=== PATIENT | female | born 1955 | race Caucasian/White ===

== ENCOUNTER 2017-06-15 18:37 | Inpatient (IN) ==
[2017-06-15] MEDS ORDERED: ONDANSETRON 4 MG/2 ML VIAL IV ONE (18:53)
[2017-06-15] MEDS ORDERED: LACTATED RINGERS 1,000 ML IV ONE (18:53)
--- NOTE | 2017-06-15 18:55 | Emergency Department Note ---
SOB HPI - General Chief Complaint: Shortness of Breath/Dyspnea Stated Complaint: SOB, weakness Time Seen by Provider: 06/15/17 18:49 Source: patient Mode of arrival: EMS - History of Present Illness This patient comes from care home in [place] with cough fever shortness of breath nausea vomiting for last several days. Has a number of residents to have the flu. A lot of chronic back pain which is been exacerbated by the nausea vomiting and tenseness from coughing. Office productive of green phlegm. - Related Data Home Medications Medication Instructions Recorded Confirmed Amiodarone HCl [Pacerone] 400 mg PO DAILY 11/13/16 06/15/17 Atorvastatin [Lipitor] 40 mg PO HS 11/13/16 06/15/17 Fluticasone/Salmeterol [Advair 1 puff INH BID 11/13/16 06/15/17 250-50 Diskus] HYDROcodone/APAP 5/325MG [[place] 2 tab PO Q4HP PRN 11/13/16 06/15/17 5/325Mg] Lisinopril [Zestril] 10 mg PO DAILY 11/13/16 06/15/17 Loratadine [Claritin] 10 mg PO DAILY 11/13/16 06/15/17 Methocarbamol [Robaxin] 500 mg PO QIDP PRN 11/13/16 06/15/17 PARoxetine HCL [Paxil] 40 mg PO BID 11/13/16 06/15/17 Spironolactone [Aldactone] 25 mg PO DAILY 11/13/16 06/15/17 Theophylline Anhydrous [Ayden-24] 300 mg PO DAILY 11/13/16 06/15/17 metFORMIN [Glucophage] 500 mg PO BIDCC 11/13/16 06/15/17 sitaGLIPtin [Januvia] 100 mg PO DAILY 11/13/16 06/15/17 traZODone HCL [Trazodone HCl] 100 mg PO HS 11/13/16 06/15/17 Apixaban [Eliquis] 5 mg PO BID 05/13/17 06/15/17 Cholecalciferol (Vitamin D3) 400 unit PO DAILY 05/13/17 06/15/17 [Delta D3] Ipratropium [Atrovent] 2.5 ml NEB Q6HP PRN 05/13/17 06/15/17 Lidocaine 5% Oint 1 dose TOPICAL QIDP PRN 05/13/17 06/15/17 Metoprolol Succinate [Toprol Xl] 50 mg PO BID 05/13/17 06/15/17 Multivitamin [One Daily] 1 each PO DAILY 05/13/17 06/15/17 Nystatin 100,000 unit PO BID 05/13/17 06/15/17 Ondansetron [Zofran Odt] 8 mg PO Q8HP PRN 05/13/17 06/15/17 Pregabalin [Lyrica] 50 mg PO BID 05/13/17 06/15/17 Ubidecarenone [Co Q-10] 200 mg PO DAILY 05/13/17 06/15/17 Vitamin B Complex [Ultra B-100 1 each PO DAILY 05/13/17 06/15/17 Complex] fentaNYL [Fentanyl] 50 mcg TD Q72H 05/13/17 06/15/17 Allergies Allergy/AdvReac Type Severity Reaction Status Date / Time No Known Drug Allergies Allergy Verified 06/15/17 18:46 Review of Systems All systems ED: reviewed and negative except as stated. Past Medical History - Past Medical History Medical history: Reports: atrial fibrillation, CHF, COPD, DM, fibromyalgia, hyperlipidemia, hypertension - Social History smoking status: Current every day smoker Physical Exam Limitations: no limitations General appearance: alert Head: atraumatic Eye: Present: normal appearance ENT: normal exam Neck: Present: normal inspection Chest: Present: normal inspection Respiratory: Present: other (diminished breath sounds in the bases) Cardiovascular: Present: irregular rhythm, normal heart sounds Abdominal: Present: soft, tenderness. Absent: distention, guarding, rebound Abdominal tenderness: Present: diffuse, mild Neurological: Present: alert Psychiatric: Present: normal affect, normal mood Skin: Present: warm, dry, intact Course Vital Signs Temperature 100.3 F H 06/15/17 18:38 Pulse Rate 73 06/15/17 18:38 Respiratory Rate 20 06/15/17 18:38 Blood Pressure 95/77 06/15/17 18:38 Pulse Oximetry (%) 98 06/15/17 18:38 Temperature 100.3 F H 06/15/17 18:38 Pulse Rate 71 06/15/17 20:44 Respiratory Rate 16 06/15/17 20:44 Blood Pressure 106/53 06/15/17 20:31 Pulse Oximetry (%) 97 06/15/17 20:44 Shortness of Breath/Dyspnea - [facility] Narrative Medical decision making narrative: This patient's flu test was negative I believe she has a posterior infiltrate on her chest x-ray. White count was elevated lactic acid slightly elevated she is febrile. We did blood cultures and started Levaquin. She will be admitted to the hospital by Dr. Del Castillo - Lab Data Lab results reviewed: Yes I reviewed the patient's lab results. Result diagrams: 06/15/17 19:12 06/15/17 19:12 Lab Results 06/15/17 06/15/17 06/15/17 Range/Units 19:12 19:12 19:12 WBC 13.1 H (4.5-11.0) K/mcL RBC 4.27 (4.00-5.20) M/mcL Hgb 12.1 (12.0-15.0) g/dL Hct 37.4 (36.0-48.0) % MCV 87.6 (80.0-100.0) fL MCH 28.4 (26.0-34.0) pg MCHC 32.5 (31.0-36.0) g/dL RDW 15.5 H (11.5-14.5) % Plt Count 285 (140-440) K/mcL MPV 8.8 (7.4-10.4) fL Gran % 69.3 (38.0-78.0) % Lymph % (Auto) 20.7 (15.5-49.0) % [place] % (Auto) 7.1 (1.0-12.0) % Eos % (Auto) 2.7 (0.0-7.0) % Baso % (Auto) 0.2 (0.0-2.0) % Gran # 9.0 H (1.8-8.0) K/mcL Lymph # (Auto) 2.7 (1.5-4.8) K/mcL [place] # (Auto) 0.9 (0.1-0.9) K/mcL Eos # (Auto) 0.4 (0.0-0.7) K/mcL Baso # (Auto) 0 (0.0-0.3) K/mcL VBG Lactic Acid 2.9 H (0.5-2.2) mmol/L Sodium 140 (133-145) mmol/L Potassium 4.4 (3.3-5.1) mmol/L Chloride 97 (96-108) mmol/L Carbon Dioxide 27 (22-30) mmol/L Anion Gap 16.0 (8-16) BUN 12 (8-23) mg/dl Creatinine 0.8 (0.6-1.1) mg/dl GFR Calculation 78 Glucose 214 H (70-105) mg/dL Calcium 9.5 (8.6-10.4) mg/dl Total Bilirubin 0.3 (0.0-1.0) mg/dL AST 100 H (0-37) U/l ALT 77 H (0-40) U/l Alkaline Phosphatase 94 (39-117) U/L Total Protein 7.5 (5.9-8.4) gm/dL Albumin 3.5 (3.2-5.2) gm/dL Globulin 4.0 H (2.2-3.7) gm/dL Albumin/Globulin Ratio 0.9 L (1.0-2.3) Lipase 24 (7-60) U/L Urine Color Urine Appearance Urine pH (5.0-9.0) Ur Specific [place] (1.000-1.035) Urine Protein (NEG) mg/dL Urine Glucose (UA) (NEG) mg/dL Urine Ketones (NEG) mg/dL Urine Occult Blood (<0.03) mg/dL Urine Nitrate (NEG) Urine Bilirubin (NEG) mg/dL Urine Urobilinogen (NEG) mg/dL Ur Leukocyte Esterase (NEG) /uL Urine RBC (0-1) /hpf Urine WBC (0-4) /hpf Ur Squamous Epith Cells (0-4) /hpf Calcium Oxalate Crystal (0) /hpf Urine Bacteria (0) /hpf Ur Culture Indicated? 06/15/17 Range/Units 20:00 WBC (4.5-11.0) K/mcL RBC (4.00-5.20) M/mcL Hgb (12.0-15.0) g/dL Hct (36.0-48.0) % MCV (80.0-100.0) fL MCH (26.0-34.0) pg MCHC (31.0-36.0) g/dL RDW (11.5-14.5) % Plt Count (140-440) K/mcL MPV (7.4-10.4) fL Gran % (38.0-78.0) % Lymph % (Auto) (15.5-49.0) % [place] % (Auto) (1.0-12.0) % Eos % (Auto) (0.0-7.0) % Baso % (Auto) (0.0-2.0) % Gran # (1.8-8.0) K/mcL Lymph # (Auto) (1.5-4.8) K/mcL [place] # (Auto) (0.1-0.9) K/mcL Eos # (Auto) (0.0-0.7) K/mcL Baso # (Auto) (0.0-0.3) K/mcL VBG Lactic Acid (0.5-2.2) mmol/L Sodium (133-145) mmol/L Potassium (3.3-5.1) mmol/L Chloride (96-108) mmol/L Carbon Dioxide (22-30) mmol/L Anion Gap (8-16) BUN (8-23) mg/dl Creatinine (0.6-1.1) mg/dl GFR Calculation Glucose (70-105) mg/dL Calcium (8.6-10.4) mg/dl Total Bilirubin (0.0-1.0) mg/dL AST (0-37) U/l ALT (0-40) U/l Alkaline Phosphatase (39-117) U/L Total Protein (5.9-8.4) gm/dL Albumin (3.2-5.2) gm/dL Globulin (2.2-3.7) gm/dL Albumin/Globulin Ratio (1.0-2.3) Lipase (7-60) U/L Urine Color Loren Urine Appearance Cloudy Urine pH 5.0 (5.0-9.0) Ur Specific [place] 1.025 (1.000-1.035) Urine Protein 100 A (NEG) mg/dL Urine Glucose (UA) 50 A (NEG) mg/dL Urine Ketones Neg (NEG) mg/dL Urine Occult Blood >=1.0 A (<0.03) mg/dL Urine Nitrate Neg (NEG) Urine Bilirubin Neg (NEG) mg/dL Urine Urobilinogen 2.0 A (NEG) mg/dL Ur Leukocyte Esterase Neg (NEG) /uL Urine RBC > 182 H (0-1) /hpf Urine WBC 7 H (0-4) /hpf Ur Squamous Epith Cells 1 (0-4) /hpf Calcium Oxalate Crystal Mod A (0) /hpf Urine Bacteria Few A (0) /hpf Ur Culture Indicated? Yes - Radiology Data Radiology results reviewed: Yes I reviewed the patient's radiology results. Disposition Pt seen by [facility] only: No Clinical Impression: Community acquired pneumonia Disposition: Xfer As Inpt ([facility]) Condition: Good Referrals: Katie Camp ARNP [Primary Care Provider] - Time of Disposition: 21:20
[2017-06-15] MEDS: HYDROmorphone 2 MG/ML SYRINGE IV PRN ×3 (19:17→21:48)
[2017-06-15] MEDS ORDERED: LEVOFLOXACIN 750 MG/150 ML BAG IV ONE (19:52)
--- NOTE | 2017-06-15 19:53 | XRay Report ---
CLINICAL INFORMATION: Cough and shortness of breath COMPARISON: None. FINDINGS: Moderate cardiomegaly is appreciated. Mediastinum is unremarkable. Pulmonary vessels are mildly distended. No definite edema. Minor bibasilar atelectasis noted IMPRESSION: Mild CHF or volume overload Interpreted and Authenticated by: Trace Terrell 06/15/17
[2017-06-15 20:26] LABS: Basophils # (Auto) 0 K/mcL (0.0-0.3); Basophils % (Auto) 0.2 % (0.0-2.0); Eosinophils # (Auto) 0.4 K/mcL (0.0-0.7); Eosinophils % (Auto) 2.7 % (0.0-7.0); Granulocytes % (Auto) 69.3 % (38.0-78.0); Lymphocytes # (Auto) 2.7 K/mcL (1.5-4.8); Lymphocytes % (Auto) 20.7 % (15.5-49.0); Mean Cell Volume 87.6 fL (80.0-100.0); Mean Corpuscular HGB Conc 32.5 g/dL (31.0-36.0); Mean Corpuscular Hemoglobin 28.4 pg (26.0-34.0); Monocytes # (Auto) 0.9 K/mcL (0.1-0.9); Monocytes % (Auto) 7.1 % (1.0-12.0); Platelet Count 285 K/mcL (140-440); RBC 4.27 M/mcL (4.00-5.20); Red Cell Distribution Width 15.5 % (11.5-14.5)
[2017-06-15 20:40] LABS: ALT/SGPT 77 U/l (0-40); Albumin 3.5 gm/dL (3.2-5.2); Albumin/Globulin Ratio 0.9 (1.0-2.3); Alkaline Phosphatase 94 U/L (39-117); Blood Urea Nitrogen 12 mg/dl (8-23); Lipase 24 U/L (7-60)
[2017-06-15 20:41] LABS: Appearance,Urine CLOUDY; Bacteria,Urine FEW /hpf (0); Bilirubin,Urine NEG (NEG); Calcium Oxalate Crystals,Urine MOD /hpf (0); Color,Urine AMBER; Glucose,Urine (UA) 50 mg/dL (NEG); Leukocyte Esterase,Urine NEG /uL (NEG); Nitrate,Urine NEG (NEG); Protein,Urine 100 mg/dL (NEG); Specific Gravity,Urine 1.025 (1.000-1.035); Urine Blood >=1.0 mg/dL (<0.03); Urine RBC > 182 /hpf (0-1); Urine Squamous Epithelial Cell 1 /hpf (0-4); Urine WBC 7 /hpf (0-4)
[2017-06-15 22:08] LABS: proBNP 288.1 pg/ml (0-125)
[2017-06-15] MEDS ORDERED: ACETAMINOPHEN 325 MG TABLET PO PRN (22:16)
[2017-06-15] MEDS ORDERED: cefTRIAXone 2 GM in DEXTROSE 5% IN WATER 50 ML IV SCH (22:16)
[2017-06-15] MEDS ORDERED: NALOXONE HCL 0.4 MG/ML VIAL IV PRN (22:16)
[2017-06-15] MEDS ORDERED: DEXTROSE 50% 50 ML VIAL IV PRN (22:23)
[2017-06-15] MEDS ORDERED: DEXTROSE 31 GM ORAL.SUSP PO PRN (22:23)
[2017-06-15] MEDS: INSULIN LISPRO 1 UNIT/0.01 ML UNIT SQ SCH (22:30)
[2017-06-15] MEDS ORDERED: predniSONE 20 MG TABLET PO ONE (22:46)
[2017-06-15] MEDS ORDERED: ACETAMINOPHEN 1,000 MG/100 ML BOTTLE IV PRN (22:48)
[2017-06-15] MEDS ORDERED: cefTRIAXone 1 GM VIAL ONE ×2 (22:58→22:59)
[2017-06-15] MEDS ORDERED: traZODone HCL 50 MG TABLET ONE (22:58)
--- NOTE | 2017-06-15 22:59 | Internal Med History&Physical ---
Medical - H&P: HPI Patient information: Note initiated : 06/15/17 at 10:54 pm Service Date, if different from initiated Date: [] Patient: Sammie Mazariegos a 61 y/o F admitted on 06/15/17 for SOB, weakness. Chief Complaint: [] History of present illness: Ms. Mazariegos is a 61 year old Female who presents to the hospital today from [facility] for shortness of breath, cough and chest pains. The patient notes that she was at her baseline status approximately 5 days ago, she then started to develop cough, shortness of breath and chest pain, cough and shortness of breath has been progressively getting worse, the patient cough is associated with yellowish green sputum, she notes she has chest tightness as well as chest pain with her coughing. Her shortness of breath has been progressively getting worse and therefore she presented to the hospital for further management. The patient notes that there are a few [place] residents with the flu In the ER the patient had a low grade temperature, her bp was low normal, she had leucocytosis, hematuria with few wbc, CXR interpreted as mild chf/ fluid overload, the patient was admitted to the hospital for further management. The patient note she has childhood asthma, taking theophyllline since then? she has h/o congestive heart failure (diastolic as for snf notes), copd, afib on anticoagulation. she has been a SNF resident since last year, as she did not have any place to go. She notes she wishes to be comfortable, and does not wish any aggressive interventions, she declined cpr, as well as intubation, said no to bipap. The patient notes she had soem dizziness and headaches, no issues with swallowing, no hearing or vision issues, chr abdominal pain and some nausea, no constipation or diarrhea, no urinary complaints. no edema feet, chr joint and back pain. has depression. All systems: reviewed and no additional remarkable complaints except as stated ( as per HPI) Medical - H&P: PMH Medical history: COPD on 2 L home oxygen CHF diastoilic afib on eliquis allergic rhinitis back pain fibromyalgia htn type 2 MD palma depression. morbid obesity Surgical history: cholecystectomy tonisllectomy Pertinent family history: mothers side has cancer father side has cardiac issues. Social history: lives in [facility] smoker denies recreational drugs and etoh. Medical - H&P: Meds Home Medications Medication Instructions Recorded Confirmed Type Amiodarone HCl [Pacerone] 400 mg PO DAILY 11/13/16 06/15/17 History Atorvastatin [Lipitor] 40 mg PO HS 11/13/16 06/15/17 History Fluticasone/Salmeterol [Advair 1 puff INH BID 11/13/16 06/15/17 History 250-50 Diskus] HYDROcodone/APAP 5/325MG [[place] 2 tab PO Q4HP PRN 11/13/16 06/15/17 History 5/325Mg] Lisinopril [Zestril] 10 mg PO DAILY 11/13/16 06/15/17 History Loratadine [Claritin] 10 mg PO DAILY 11/13/16 06/15/17 History Methocarbamol [Robaxin] 500 mg PO QIDP PRN 11/13/16 06/15/17 History PARoxetine HCL [Paxil] 40 mg PO BID 11/13/16 06/15/17 History Spironolactone [Aldactone] 25 mg PO DAILY 11/13/16 06/15/17 History Theophylline Anhydrous [Ayden-24] 300 mg PO DAILY 11/13/16 06/15/17 History metFORMIN [Glucophage] 500 mg PO BIDCC 11/13/16 06/15/17 History sitaGLIPtin [Januvia] 100 mg PO DAILY 11/13/16 06/15/17 History traZODone HCL [Trazodone HCl] 100 mg PO HS 11/13/16 06/15/17 History Apixaban [Eliquis] 5 mg PO BID 05/13/17 06/15/17 History Cholecalciferol (Vitamin D3) 400 unit PO DAILY 05/13/17 06/15/17 History [Delta D3] Ipratropium [Atrovent] 2.5 ml NEB Q6HP PRN 05/13/17 06/15/17 History Lidocaine 5% Oint 1 dose TOPICAL QIDP PRN 05/13/17 06/15/17 History Metoprolol Succinate [Toprol Xl] 50 mg PO BID 05/13/17 06/15/17 History Multivitamin [One Daily] 1 each PO DAILY 05/13/17 06/15/17 History Nystatin 100,000 unit PO BID 05/13/17 06/15/17 History Ondansetron [Zofran Odt] 8 mg PO Q8HP PRN 05/13/17 06/15/17 History Pregabalin [Lyrica] 50 mg PO BID 05/13/17 06/15/17 History Ubidecarenone [Co Q-10] 200 mg PO DAILY 05/13/17 06/15/17 History Vitamin B Complex [Ultra B-100 1 each PO DAILY 05/13/17 06/15/17 History Complex] fentaNYL [Fentanyl] 50 mcg TD Q72H 05/13/17 06/15/17 History Allergies Allergy/AdvReac Type Severity Reaction Status Date / Time No Known Drug Allergies Allergy Verified 06/15/17 18:46 Medical - H&P: Exam - Constitutional Vitals: Temp Pulse Resp BP Pulse Ox 98.1 F 71 60 H 122/63 94 06/15/17 22:16 06/15/17 22:16 06/15/17 22:16 06/15/17 22:16 06/15/17 22:16 Exam: GENERAL: The patient is a well-developed, well-nourished in no apparent distress. Is alert and oriented x3. short, with central obesity. VITAL SIGNS: Reviewed and as noted elsewhere. HEENT: Head is normocephalic and atraumatic. Extraocular muscles are intact. Pupils are equal, round, and reactive to light. Nares appeared normal. Mouth appears any without lesions. Mucous membranes are dry NECK: Normal to inspection, Supple, short neck LUNGS: Air entry equal on both sides, but significantly dimished breath sounds, no wheezing, crackles or rhonchi noted. No accessory muscles of respiration HEART: Regular rate and rhythm normal, S1 and S2 heard, no Gallop, S3 or Rub Noted, No Gross murmur heard. ABDOMEN: Soft, left lateral , right lateral areas mildly tender, her PCP is working it up, abdomen is nondistended. Positive bowel sounds. No hepatosplenomegaly was noted. Large pannus. EXTREMITIES: No cyanosis, clubbing, rash, lesions or edema. NEUROLOGIC: Cranial nerves II through XII are grossly intact. Motor and Sensory System Grossly Intact PSYCHIATRIC: Normal affect, Normal Mood. Appropriate Behavior. SKIN: No ulceration or wounds noted, No jaundice, fungal rash under the breast Medical - H&P: Reslt - Labs CBC & Chem 7: 06/15/17 19:12 06/15/17 19:12 Labs: Short CBC 06/15/17 Range/Units 19:12 WBC 13.1 H (4.5-11.0) K/mcL Hgb 12.1 (12.0-15.0) g/dL Hct 37.4 (36.0-48.0) % Plt Count 285 (140-440) K/mcL BMP 06/15/17 19:12 Sodium 140 Potassium 4.4 Chloride 97 Carbon Dioxide 27 BUN 12 Creatinine 0.8 Glucose 214 H Calcium 9.5 Liver Function 06/15/17 Range/Units 19:12 Total Bilirubin 0.3 (0.0-1.0) mg/dL AST 100 H (0-37) U/l ALT 77 H (0-40) U/l Alkaline Phosphatase 94 (39-117) U/L Albumin 3.5 (3.2-5.2) gm/dL Urine 06/15/17 Range/Units 20:00 Urine Color Loren Urine Appearance Cloudy Urine pH 5.0 (5.0-9.0) Ur Specific [place] 1.025 (1.000-1.035) Urine Protein 100 A (NEG) mg/dL Urine Glucose (UA) 50 A (NEG) mg/dL - EKG Data -: EKG Reviewed by Myself EKG shows normal: sinus rhythm (non specific Intraventricular conduction delay, no acyute ischemic changes. ) Medical - H&P: A/P - Narrative A/P Narrative: A/P Acute COPD exacerbation: Patient has kamran poor air entry and URI symptoms with cough and shortness of breath, will treat as copd exacerbation, possible bronchitits causing elevated WBC, X ray chest is reported negative. possibly sepsis and lactic acidosis. Treat with PO prednisone 60 mg, DUonebs q4hrs, and Levofloxacin. IV fluids, trend lactate. Give tamiflu x 5 days. (noted flu test is neg, but high disease prevalence) UTI: abnl UA noted, cultures awaited, levofloxa should cover Chr resp failure: Uses 2 L oxygen at baseline ,on same does now continue same CHF Diastolic: monitor bp, Her Chest x ray is interpreted as mild chf, bnp is mildly elevated, however patient clinically is dry, dry mucosa, no edema, hold diuretics (aldactone) HTN: Hold home bp meds, metoprolol and lisinopril for now, given normal bp, and likely need for IV fluids in light of infection and lactic acidosis. Hypothyroidism: TSH elevated > 10, start on low dose of levothyroxine at 12.5mcg and monitor. Atrial fibrillation: EKG appeared sinus, on amiodarone and metoprolol, on eliquis for anticoagulation, continue same. Back pain/ Fibromyalgia: Chr issues, treat with home pain meds, she is already on fentanyl patch and hydrocodone orally, gabapentin. Avoid IV narcoticsas much as possible unless pt wishes for hospice/ palliative care. DM: hold metformin, continue with januvia and sliding scale insulin. DVT on eliquis GI prophylaxis, famotid DNR code status,
[2017-06-15] MEDS ORDERED: 0.9 % SODIUM CHLORIDE 1,000 ML IV SCH (23:00)
[2017-06-15] MEDS: fentaNYL 50 MCG PATCH TOPICAL SCH (23:22)
[2017-06-15] MEDS: OSELTAMIVIR PHOSPHATE 75 MG CAPSULE PO SCH (23:22)
[2017-06-15] MEDS: METHOCARBAMOL 500 MG TABLET PO PRN (23:24)
[2017-06-15] MEDS: ATORVASTATIN 20 MG TABLET PO SCH (23:26)
[2017-06-15] MEDS: guaiFENesin/CODEINE 10 ML UDC PO PRN (23:30)
[2017-06-15] MEDS: APIXABAN 5 MG TABLET PO SCH (23:30)
[2017-06-15] MEDS: HYDROcodone/APAP 5/325MG TABLET PO PRN (23:39)
[2017-06-15] MEDS: IPRATROPIUM/ALBUTEROL 3 ML AMPUL.NEB NEB SCH (23:52)
[2017-06-16] MEDS ORDERED: IPRATROPIUM/ALBUTEROL 3 ML AMPUL.NEB NEB SCH (01:00)
[2017-06-16] MEDS: HYDROcodone/APAP 5/325MG TABLET PO PRN ×5 (03:49→20:39)
[2017-06-16] MEDS: guaiFENesin/CODEINE 10 ML UDC PO PRN ×5 (03:50→21:59)
[2017-06-16] MEDS: IPRATROPIUM/ALBUTEROL 3 ML AMPUL.NEB NEB SCH ×7 (04:00→23:04)
[2017-06-16 05:23] LABS: Basophils # (Auto) 0 K/mcL (0.0-0.3); Basophils % (Auto) 0.2 % (0.0-2.0); Eosinophils # (Auto) 0.1 K/mcL (0.0-0.7); Granulocytes % (Auto) 84.3 % (38.0-78.0); Lymphocytes # (Auto) 1.4 K/mcL (1.5-4.8); Lymphocytes % (Auto) 12.1 % (15.5-49.0); Mean Cell Volume 88.8 fL (80.0-100.0); Mean Corpuscular HGB Conc 32.1 g/dL (31.0-36.0); Mean Corpuscular Hemoglobin 28.5 pg (26.0-34.0); Monocytes # (Auto) 0.3 K/mcL (0.1-0.9); Monocytes % (Auto) 2.4 % (1.0-12.0); Platelet Count 245 K/mcL (140-440); RBC 4.13 M/mcL (4.00-5.20); Red Cell Distribution Width 15.1 % (11.5-14.5)
[2017-06-16 06:04] LABS: ALT/SGPT 67 U/l (0-40); Albumin 3.4 gm/dL (3.2-5.2); Albumin/Globulin Ratio 0.9 (1.0-2.3); Alkaline Phosphatase 82 U/L (39-117); Bilirubin,Direct < 0.2 mg/dL (0.0-0.3); Blood Urea Nitrogen 11 mg/dl (8-23); Gamma Glutamyl Transpeptidase 117 U/L (5-36); Magnesium 1.4 mg/dL (1.6-2.5); Uric Acid 2.9 mg/dL (2.5-8.0)
[2017-06-16] MEDS: LEVOTHYROXINE 25 MCG TABLET PO SCH (07:53)
[2017-06-16] MEDS: AMIODARONE HCL 200 MG TABLET PO SCH (08:09)
[2017-06-16] MEDS: INSULIN LISPRO 1 UNIT/0.01 ML UNIT SQ SCH ×5 (08:09→20:55)
[2017-06-16] MEDS: predniSONE 20 MG TABLET PO SCH (08:09)
[2017-06-16] MEDS ORDERED: LEVOFLOXACIN 750 MG/150 ML BAG IV SCH (09:00)
[2017-06-16] MEDS ORDERED: PREGABALIN 50 MG CAPSULE PO SCH (09:00)
[2017-06-16] MEDS ORDERED: PAROXETINE HCL 40 MG PO SCH (09:00)
[2017-06-16] MEDS ORDERED: OSELTAMIVIR PHOSPHATE 75 MG CAPSULE PO SCH (09:00)
[2017-06-16] MEDS ORDERED: THEOPHYLLINE ANHYDROUS 300 MG TAB.ER.12H PO SCH (09:00)
[2017-06-16] MEDS ORDERED: MAGNESIUM SULFATE 32.48 MEQ in DEXTROSE 5% IN WATER 100 ML IV ONE (09:00)
[2017-06-16] MEDS: FLUTICASONE/SALMETEROL 250/50 INHALER #14 INH SCH ×2 (09:10→20:58)
[2017-06-16] MEDS: VITAMIN D3 400 UNIT TABLET PO SCH (09:11)
[2017-06-16] MEDS: PREGABALIN 25 MG CAPSULE PO SCH ×2 (09:19→20:40)
[2017-06-16] MEDS: sitaGLIPtin 100 MG TABLET PO SCH (09:19)
[2017-06-16] MEDS: MAGNESIUM OXIDE 400 MG TABLET PO SCH ×2 (09:19→20:41)
[2017-06-16] MEDS: MULTIVIT,THER IRON,CA,FA & MIN 1 TABLET PO SCH (09:19)
[2017-06-16] MEDS: OSELTAMIVIR PHOSPHATE 75 MG CAPSULE PO SCH ×2 (09:20→20:41)
[2017-06-16] MEDS: APIXABAN 5 MG TABLET PO SCH ×2 (09:20→20:41)
[2017-06-16] MEDS: NYSTATIN CRM 1 DOSE TUBE TOPICAL SCH ×3 (09:20→20:47)
[2017-06-16] MEDS: PARoxetine 20 MG TABLET PO SCH (09:23)
[2017-06-16] MEDS ORDERED: BENZONATATE 100 MG CAPSULE PO PRN (10:15)
[2017-06-16] MEDS: fentaNYL 50 MCG PATCH TOPICAL SCH (10:55)
[2017-06-16] MEDS: METHOCARBAMOL 500 MG TABLET PO PRN ×2 (10:56→18:37)
[2017-06-16] MEDS: ONDANSETRON 4 MG/2 ML VIAL IV PRN ×2 (10:56→18:37)
[2017-06-16] MEDS: THEOPHYLLINE ANHYDROUS 300 MG TAB.ER.12H PO SCH ×2 (11:10→12:41)
--- NOTE | 2017-06-16 12:18 | Internal Med Progress Note ---
Medical - PN: Subj Patient information: Note initiated : 06/16/17 at 12:15 pm Service Date, if different from initiated Date: [] Patient: Sammie Mazariegos a 61 y/o F admitted on 06/15/17 for SOB, Weakness/ COPD Exacerbation. Chief Complaint: [] Interval history: Ms. Mazariegos is a 61 year old Female who presents to the hospital today from [facility] for shortness of breath, cough and chest pains. The patient notes that she was at her baseline status approximately 5 days ago, she then started to develop cough, shortness of breath and chest pain, cough and shortness of breath has been progressively getting worse, the patient cough is associated with yellowish green sputum, she notes she has chest tightness as well as chest pain with her coughing. Her shortness of breath has been progressively getting worse and therefore she presented to the hospital for further management. The patient notes that there are a few [place] residents with the flu In the ER the patient had a low grade temperature, her bp was low normal, she had leucocytosis, hematuria with few wbc, CXR interpreted as mild chf/ fluid overload, the patient was admitted to the hospital for further management. The patient note she has childhood asthma, taking theophyllline since then? she has h/o congestive heart failure (diastolic as for snf notes), copd, afib on anticoagulation. she has been a SNF resident since last year, as she did not have any place to go. She notes she wishes to be comfortable, and does not wish any aggressive interventions, she declined cpr, as well as intubation, said no to bipap. The patient notes she had soem dizziness and headaches, no issues with swallowing, no hearing or vision issues, chr abdominal pain and some nausea, no constipation or diarrhea, no urinary complaints. no edema feet, chr joint and back pain. has depression. Jun 16 patient seen examined this AM doing well, was sitting comforably in bed, has no acute concerns, but does have some cough , tesselon perles to be added The patients urine is growing gram neg bacillus blood cx is neg she remains on levofloxax for bronchitis and UTI, descalate therapy as per sensitivities or adjust medications as needed. Patients pain control is reasonable, leucocytosis is improving. Glucose level his high, likely8 due to steroids. Pertinent ROS: Denies headache, dizziness Denies chest pain, palpitations present cough and shortness of breath Denies abdominal pain, nausea or vomiting. - Constitutional Vitals: Vital Signs Temp Pulse Resp BP Pulse Ox 97.9 F 90 20 129/77 94 06/16/17 08:00 06/16/17 08:00 06/16/17 08:00 06/16/17 08:00 06/16/17 08:00 Period Temp Pulse Resp BP Sys/Parra Pulse Ox Last 24 Hr 97.1 F-100.3 F 66-90 14-26 95-129/50-77 94-98 Intake and Output 06/15/17 06/16/17 06/16/17 21:59 05:59 13:59 Intake Total 1150 / 1150 1500 / 1500 100 / 100 Output Total 101 / 101 Balance 1150 / 1150 1500 / 1500 -1 / -1 Weight 235 lb 235 lb Intake & Output: Intake & Output 06/15/17 06/16/17 06/16/17 21:59 05:59 13:59 Intake Total 1150 / 1150 1500 / 1500 100 / 100 Output Total 101 / 101 Balance 1150 / 1150 1500 / 1500 -1 / -1 Weight 235 lb 235 lb Intake: IV 1150 / 1150 1000 / 1000 100 / 100 Sodium Chloride 0.9% 1,000 ml @ 1000 / 1000 250 mls/hr IV .Q4H PATRICK Rx#: [id number] Lactated Ringers 1,000 ml @ 1000 / 1000 Wide Open IV BOLUS ONE Rx#: [id number] Oral 500 / 500 Output: Void Amount 100 / 100 # of times incontinent of urine Other: Meal Sandwhich Percent of Meal Consumed 100% Feeding Ability Independent # Voids 1 1 Exam: Constitutional; Afebrile, cooperative, alert, not in distress. Eyes- No icterus, , No periorbital swelling Ears- Ext ear normal, hearing normal to conversation. Neck- Midline trachea, supple Respiratory system: Air Entry equal on both sides but significantly diminished breath sounds, No crackles or wheezing, no rhonchi. CVS- Rate rhythm regular, S1,S2 heard, no gallop, no rub. Abdomen- Soft nontender abdomen, no organomegaly, no tenderness, no guarding or rigidity, BUSINESS MANAGER- AOOx3, moving all extremities, no gross focal deficit noted. Medical - PN: Obj Da - Labs CBC & Chem 7: 06/16/17 03:33 06/16/17 03:33 Labs: Abnormal Lab Results 06/16/17 06/16/17 06/15/17 03:33 03:33 20:00 WBC 11.5 H Hgb 11.8 L RDW 15.1 H Gran % 84.3 H Lymph % (Auto) 12.1 L Gran # 9.7 H Lymph # (Auto) 1.4 L VBG Lactic Acid Glucose 221 H Magnesium 1.4 L GGT 117 H AST 82 H ALT 67 H NT-Pro-B Natriuret Pep Globulin Albumin/Globulin Ratio 0.9 L TSH Urine Protein 100 A Urine Glucose (UA) 50 A Urine Occult Blood >=1.0 A Urine Urobilinogen 2.0 A Urine RBC > 182 H Urine WBC 7 H Calcium Oxalate Crystal Mod A Urine Bacteria Few A 06/15/17 06/15/17 06/15/17 19:12 19:12 19:12 WBC Hgb RDW Gran % Lymph % (Auto) Gran # Lymph # (Auto) VBG Lactic Acid 2.9 H Glucose 214 H Magnesium GGT AST 100 H ALT 77 H NT-Pro-B Natriuret Pep 288.1 H Globulin 4.0 H Albumin/Globulin Ratio 0.9 L TSH 11.07 H Urine Protein Urine Glucose (UA) Urine Occult Blood Urine Urobilinogen Urine RBC Urine WBC Calcium Oxalate Crystal Urine Bacteria 06/15/17 19:12 WBC 13.1 H Hgb RDW 15.5 H Gran % Lymph % (Auto) Gran # 9.0 H Lymph # (Auto) VBG Lactic Acid Glucose Magnesium GGT AST ALT NT-Pro-B Natriuret Pep Globulin Albumin/Globulin Ratio TSH Urine Protein Urine Glucose (UA) Urine Occult Blood Urine Urobilinogen Urine RBC Urine WBC Calcium Oxalate Crystal Urine Bacteria Meds: Medications Hydrocodone Bitart/Acetaminophen ([place] 5/325mg) 2 tab PO Q4HP PRN PRN Reason: Pain Last Admin: 06/16/17 12:10 Dose: 2 tab Albuterol/Ipratropium (Duoneb) 3 ml NEB Q4HRT [facility] Last Admin: 06/16/17 07:10 Dose: 3 ml [facility]ar[facility] ([facility]) [facility] Last Admin: 06/16/17 08:09 Dose: 400 mg Atorvastatin Calcium (Lipitor) 20 mg PO HS [facility] Last Admin: 06/15/17 23:26 Dose: 20 mg Benzonatate (Tessalon) 100 mg PO TIDP PRN PRN Reason: Cough Dextrose (Dextrose 50%) 0 ml IV UD PRN PRN Reason: Hypoglycemia Diagnostic Test (Pha) (Accu-Chek) 1 each FS ACHS [facility] Last Admin: 06/16/17 11:41 Dose: 1 each Fentanyl (Duragesic) 50 mcg TOPICAL Q72H [facility] Last Admin: 06/16/17 10:55 Dose: 50 mcg Glucose (Insta-Glucose) 15 gm PO PRN PRN PRN Reason: Hypoglycemia Guaifenesin/Codeine Phosphate (Robitussin Ac) 10 ml PO Q4HP PRN PRN Reason: Cough Last Admin: 06/16/17 12:09 Dose: 10 ml Levofloxacin (Levaquin) 750 mg in 150 mls @ 100 mls/hr IV Q24H [facility] Last Infusion: 06/16/17 10:20 Dose: 0 mls/hr Acetaminophen (Ofirmev) 1,000 mg in 100 mls @ 200 mls/hr IV Q6HP PRN PRN Reason: PAIN/FEVER > 101 Insulin Human Lispro (Humalog) 0 unit SQ [facility] PRN Reason: Protocol Last Admin: 06/16/17 11:41 Dose: 8 unit Iron Carb/Multivit/[place]/Folic Acid (Multivitamin W/Minerals) 1 tab PO DAILY [facility] Last Admin: 06/16/17 09:19 Dose: 1 tab Levothyroxine Sodium (Synthroid) 12.5 mcg PO QAMAC [facility] Last Admin: 06/16/17 07:53 Dose: 12.5 mcg Magnesium Oxide (Magnesium Oxide) 400 mg PO BID [facility] Last Admin: 06/16/17 09:19 Dose: 400 mg Methocarbamol (Robaxin) 500 mg PO QIDP PRN PRN Reason: Pain Last Admin: 06/16/17 10:56 Dose: 500 mg Naloxone HCl (Narcan) 0.1 mg IV Q2MIN PRN PRN Reason: Opiate Reversal Nystatin (Nystatin Crm) 1 dose TOPICAL TID [facility] Last Admin: 06/16/17 09:20 Dose: 1 dose Ondansetron HCl (Zofran) 4 mg IV Q4HP PRN PRN Reason: Nausea And Vomiting Last Admin: 06/16/17 10:56 Dose: 4 mg Oseltamivir Phosphate (Tamiflu) 75 mg PO BID [facility] Stop: 06/20/17 22:23 Last Admin: 06/16/17 09:20 Dose: 75 mg Paroxetine HCl (Paxil) 40 mg PO DAILY [facility] Last Admin: 06/16/17 09:23 Dose: 40 mg Prednisone (Prednisone) 60 mg PO [facility] Stop: 06/21/17 07:59 Last Admin: 06/16/17 08:09 Dose: 60 mg Pregabalin (Lyrica) 50 mg PO BID [facility] Last Admin: 06/16/17 09:19 Dose: 50 mg Fluticasone/Salmeterol (Advair 250-50 Diskus) 1 puff INH BID [facility] Last Admin: 06/16/17 09:10 Dose: Not Given Sitagliptin Phosphate (Januvia) 100 mg PO DAILY [facility] Last Admin: 06/16/17 09:19 Dose: 100 mg Theophylline (Theophylline Anhydrous) 300 mg PO DAILY [facility] Last Admin: 06/16/17 11:10 Dose: Not Given Trazodone HCl (Desyrel) 100 mg PO [facility] Vitamin D (Vitamin D3) 400 unit PO DAILY [facility] Last Admin: 06/16/17 09:11 Dose: Not Given Medical - PN: A/P - Time Spent With Patient Total time spent is greater than 50% in coordination of care (as documented) at patient's floor/unit and/or counseling patient: - Narrative A/P Narrative: A/P Acute COPD exacerbation: Patient has kamran poor air entry and URI symptoms with cough and shortness of breath, will treat as copd exacerbation, X ray chest is reported negative. Treat with PO prednisone 60 mg, DUonebs q4hrs, and Levofloxacin. Give tamiflu x 5 days. (noted flu test is neg, but high disease prevalence) lactic acidosis resolved: No more IVF, patient toleratinng po diet well, UTI: abnl UA noted, cultures awaited, levofloxa should cover Chr resp failure: Uses 2 L oxygen at baseline ,on same does now continue same CHF Diastolic: monitor bp, Her Chest x ray is interpreted as mild chf, bnp is mildly elevated, however patient clinically is dry, dry mucosa, no edema, hold diuretics (aldactone), resume once bp stable and patient well hydrated. HTN: Continue to hold bp meds today, resume tomorrow, once bp remains stable x 48 hrs. Hypothyroidism: TSH elevated > 10, start on low dose of levothyroxine at 12.5mcg and monitor. Atrial fibrillation: EKG appeared sinus, on amiodarone and metoprolol, on eliquis for anticoagulation, continue same. Back pain/ Fibromyalgia: Chr issues, treat with home pain meds, she is already on fentanyl patch and hydrocodone orally, gabapentin. Avoid IV narcoticsas much as possible unless pt wishes for hospice/ palliative care. DM: hold metformin, continue with januvia and sliding scale insulin. Incresase dose of sliding scale to med dose protocol, and add lantus 10units bid DVT on eliquis GI prophylaxis, famotid DNR code status, Medical - PN: Qual - VTE Deep Vein Thrombosis/Pulmonary Embolism Present on Admission: No
[2017-06-16] MEDS ORDERED: INSULIN GLARGINE, HUMAN 1 UNIT/0.01 ML SQ ONE (12:30)
[2017-06-16] MEDS: ATORVASTATIN 20 MG TABLET PO SCH (20:41)
[2017-06-16] MEDS: INSULIN GLARGINE, HUMAN 1 UNIT/0.01 ML SQ SCH (20:54)
[2017-06-16] MEDS ORDERED: traZODone HCL 50 MG TABLET PO SCH (21:00)
[2017-06-17] MEDS: NYSTATIN CRM 1 DOSE TUBE TOPICAL SCH ×4 (00:10→21:43)
[2017-06-17] MEDS: METHOCARBAMOL 500 MG TABLET PO PRN (00:28)
[2017-06-17] MEDS: HYDROcodone/APAP 5/325MG TABLET PO PRN ×6 (00:28→21:40)
[2017-06-17] MEDS: guaiFENesin/CODEINE 10 ML UDC PO PRN ×4 (04:58→21:54)
[2017-06-17] MEDS: IPRATROPIUM/ALBUTEROL 3 ML AMPUL.NEB NEB SCH ×5 (05:02→19:16)
[2017-06-17 05:41] LABS: ALT/SGPT 64 U/l (0-40); Albumin 3.3 gm/dL (3.2-5.2); Albumin/Globulin Ratio 0.9 (1.0-2.3); Alkaline Phosphatase 88 U/L (39-117); Bilirubin,Direct < 0.2 mg/dL (0.0-0.3); Blood Urea Nitrogen 16 mg/dl (8-23); Gamma Glutamyl Transpeptidase 112 U/L (5-36); Uric Acid 2.6 mg/dL (2.5-8.0)
[2017-06-17 05:56] LABS: Granulocytes % (Auto) 74.7 % (38.0-78.0); Lymphocytes % (Auto) 16.8 % (15.5-49.0); Mean Cell Volume 88.5 fL (80.0-100.0); Mean Corpuscular HGB Conc 32.3 g/dL (31.0-36.0); Mean Corpuscular Hemoglobin 28.6 pg (26.0-34.0); Platelet Count 284 K/mcL (140-440); RBC 4.04 M/mcL (4.00-5.20); Red Cell Distribution Width 14.9 % (11.5-14.5)
[2017-06-17 05:57] LABS: Basophils # (Auto) 0 K/mcL (0.0-0.3); Basophils % (Auto) 0.3 % (0.0-2.0); Eosinophils # (Auto) 0.1 K/mcL (0.0-0.7); Eosinophils % (Auto) 0.8 % (0.0-7.0); Lymphocytes # (Auto) 2.6 K/mcL (1.5-4.8); Monocytes # (Auto) 1.2 K/mcL (0.1-0.9); Monocytes % (Auto) 7.4 % (1.0-12.0)
[2017-06-17] MEDS: INSULIN LISPRO 1 UNIT/0.01 ML UNIT SQ SCH ×4 (08:31→21:42)
[2017-06-17] MEDS: INSULIN GLARGINE, HUMAN 1 UNIT/0.01 ML SQ SCH ×2 (08:32→21:42)
[2017-06-17] MEDS: MULTIVIT,THER IRON,CA,FA & MIN 1 TABLET PO SCH (08:37)
[2017-06-17] MEDS: MAGNESIUM OXIDE 400 MG TABLET PO SCH ×2 (08:37→21:40)
[2017-06-17] MEDS: LEVOTHYROXINE 25 MCG TABLET PO SCH (08:37)
[2017-06-17] MEDS: THEOPHYLLINE ANHYDROUS 300 MG TAB.ER.12H PO SCH (08:37)
[2017-06-17] MEDS: AMIODARONE HCL 200 MG TABLET PO SCH (08:38)
[2017-06-17] MEDS: FLUTICASONE/SALMETEROL 250/50 INHALER #14 INH SCH ×2 (08:47→21:20)
[2017-06-17] MEDS: PREGABALIN 25 MG CAPSULE PO SCH ×2 (08:48→21:42)
[2017-06-17] MEDS: OSELTAMIVIR PHOSPHATE 75 MG CAPSULE PO SCH ×2 (08:48→21:41)
[2017-06-17] MEDS: PARoxetine 20 MG TABLET PO SCH (08:48)
[2017-06-17] MEDS: APIXABAN 5 MG TABLET PO SCH ×2 (08:48→21:42)
[2017-06-17] MEDS: sitaGLIPtin 100 MG TABLET PO SCH (08:48)
[2017-06-17] MEDS: VITAMIN D3 400 UNIT TABLET PO SCH (08:48)
[2017-06-17] MEDS: predniSONE 20 MG TABLET PO SCH (08:50)
[2017-06-17] MEDS ORDERED: LEVOFLOXACIN 750 MG TABLET PO SCH (09:00)
[2017-06-17] MEDS ORDERED: ACETAMINOPHEN 1,000 MG/100 ML BOTTLE IV PRN (17:37)
[2017-06-17] MEDS ORDERED: ONDANSETRON 4 MG/2 ML VIAL IV PRN (17:37)
[2017-06-17] MEDS ORDERED: DEXTROSE 31 GM ORAL.SUSP PO PRN (17:37)
[2017-06-17] MEDS ORDERED: DEXTROSE 50% 50 ML VIAL IV PRN (17:37)
[2017-06-17] MEDS ORDERED: METHOCARBAMOL 500 MG TABLET PO PRN (17:37)
[2017-06-17] MEDS ORDERED: NALOXONE HCL 0.4 MG/ML VIAL IV PRN (17:37)
[2017-06-17] MEDS: metFORMIN 850 MG TABLET PO SCH (18:53)
[2017-06-17] MEDS: BENZONATATE 100 MG CAPSULE PO PRN ×2 (19:08→22:55)
[2017-06-17] MEDS ORDERED: traZODone HCL 50 MG TABLET PO SCH (21:00)
[2017-06-17] MEDS ORDERED: ATORVASTATIN 20 MG TABLET PO SCH (21:00)
--- NOTE | 2017-06-17 23:15 | Internal Med Progress Note ---
Medical - PN: Subj Patient information: Note initiated : 06/17/17 at 11:13 pm Service Date, if different from initiated Date: [] Patient: Sammie Mazariegos a 61 y/o F admitted on 06/15/17 for SOB, Weakness/ COPD Exacerbation. Chief Complaint: [] Interval history: Ms. Mazariegos is a 61 year old Female who presents to the hospital today from [facility] for shortness of breath, cough and chest pains. The patient notes that she was at her baseline status approximately 5 days ago, she then started to develop cough, shortness of breath and chest pain, cough and shortness of breath has been progressively getting worse, the patient cough is associated with yellowish green sputum, she notes she has chest tightness as well as chest pain with her coughing. Her shortness of breath has been progressively getting worse and therefore she presented to the hospital for further management. The patient notes that there are a few [place] residents with the flu In the ER the patient had a low grade temperature, her bp was low normal, she had leucocytosis, hematuria with few wbc, CXR interpreted as mild chf/ fluid overload, the patient was admitted to the hospital for further management. The patient note she has childhood asthma, taking theophyllline since then? she has h/o congestive heart failure (diastolic as for snf notes), copd, afib on anticoagulation. she has been a SNF resident since last year, as she did not have any place to go. She notes she wishes to be comfortable, and does not wish any aggressive interventions, she declined cpr, as well as intubation, said no to bipap. The patient notes she had soem dizziness and headaches, no issues with swallowing, no hearing or vision issues, chr abdominal pain and some nausea, no constipation or diarrhea, no urinary complaints. no edema feet, chr joint and back pain. has depression. Jun 16 patient seen examined this AM doing well, was sitting comforably in bed, has no acute concerns, but does have some cough, hortencia hauser was added The patients urine is growing gram neg bacillus blood cx is neg she remains on levofloxax for bronchitis and UTI, descalate therapy as per sensitivities or adjust medications as needed. Patients pain control is reasonable, leucocytosis is improving. Glucose level his high, likely due to steroids. Jun 17 Discontinued prednisone, cardiac monitoring and switched to po meds. Tentative discharge in am. WBC was up to 15. Will recheck in am. Most likely steroid effect. Metformin restarted, SS insulin continued. Check A1C - Constitutional Vitals: Vital Signs Temp Pulse Resp BP Pulse Ox 98.6 F 62 16 132/68 94 06/17/17 16:00 06/17/17 16:00 06/17/17 16:00 06/17/17 16:00 06/17/17 16:00 Period Temp Pulse Resp BP Sys/Parra Pulse Ox Last 24 Hr 97.3 F-98.6 F 60-70 16-20 101-132/53-78 93-94 Intake and Output 06/17/17 06/17/17 06/18/17 13:59 21:59 05:59 Intake Total 360 / 360 480 / 480 Balance 360 / 360 480 / 480 Intake & Output: Intake & Output 06/17/17 06/17/17 06/18/17 13:59 21:59 05:59 Intake Total 360 / 360 480 / 480 Balance 360 / 360 480 / 480 Intake: Oral 360 / 360 480 / 480 Other: Meal Breakfast Nourishment/Supplement Percent of Meal Consumed 100% 100% Feeding Ability Independent # Voids 1 1 - Respiratory Respiratory exam: Present: normal respiratory exam. Absent: rales, rhonchi, wheezes - Cardiovascular Cardiovascular exam: Present: normal rate and rhythm - GI/Abdominal GI/Abdominal exam: Present: normal bowel sounds, soft - Extremities Exam Extremities exam: Present: normal inspection. Absent: pedal edema Medical - PN: Obj Da - Labs CBC & Chem 7: 06/17/17 04:00 06/17/17 04:00 Labs: Abnormal Lab Results 06/17/17 06/17/17 06/16/17 04:00 04:00 03:33 WBC 15.8 H Hgb 11.5 L Hct 35.7 L RDW 14.9 H Gran % Lymph % (Auto) Gran # 11.8 H Lymph # (Auto) [place] # (Auto) 1.2 H VBG Lactic Acid Glucose 236 H 221 H Phosphorus 2.4 L Magnesium 1.4 L GGT 112 H 117 H AST 54 H 82 H ALT 64 H 67 H NT-Pro-B Natriuret Pep Globulin Albumin/Globulin Ratio 0.9 L 0.9 L TSH Urine Protein Urine Glucose (UA) Urine Occult Blood Urine Urobilinogen Urine RBC Urine WBC Calcium Oxalate Crystal Urine Bacteria 06/16/17 06/15/17 06/15/17 03:33 20:00 19:12 WBC 11.5 H Hgb 11.8 L Hct RDW 15.1 H Gran % 84.3 H Lymph % (Auto) 12.1 L Gran # 9.7 H Lymph # (Auto) 1.4 L [place] # (Auto) VBG Lactic Acid Glucose Phosphorus Magnesium GGT AST ALT NT-Pro-B Natriuret Pep 288.1 H Globulin Albumin/Globulin Ratio TSH 11.07 H Urine Protein 100 A Urine Glucose (UA) 50 A Urine Occult Blood >=1.0 A Urine Urobilinogen 2.0 A Urine RBC > 182 H Urine WBC 7 H Calcium Oxalate Crystal Mod A Urine Bacteria Few A 06/15/17 06/15/17 06/15/17 19:12 19:12 19:12 WBC 13.1 H Hgb Hct RDW 15.5 H Gran % Lymph % (Auto) Gran # 9.0 H Lymph # (Auto) [place] # (Auto) VBG Lactic Acid 2.9 H Glucose 214 H Phosphorus Magnesium GGT AST 100 H ALT 77 H NT-Pro-B Natriuret Pep Globulin 4.0 H Albumin/Globulin Ratio 0.9 L TSH Urine Protein Urine Glucose (UA) Urine Occult Blood Urine Urobilinogen Urine RBC Urine WBC Calcium Oxalate Crystal Urine Bacteria Meds: Medications Hydrocodone Bitart/Acetaminophen ([place] 5/325mg) 2 tab PO Q4HP PRN PRN Reason: Pain Last Admin: 06/17/17 21:40 Dose: 2 tab Albuterol/Ipratropium (Duoneb) 3 ml NEB Q6HRT [facility] Last Admin: 06/17/17 19:16 Dose: Not Given [facility]) [facility] Atorvastatin Calcium (Lipitor) 20 mg PO HS [facility] Last Admin: 06/17/17 21:41 Dose: 20 mg Benzonatate (Tessalon) 100 mg PO TIDP PRN PRN Reason: Cough Last Admin: 06/17/17 22:55 Dose: 100 mg Dextrose (Dextrose 50%) 0 ml IV UD PRN PRN Reason: Hypoglycemia Diagnostic Test (Pha) (Accu-Chek) 1 each FS ACHS [facility] Last Admin: 06/17/17 21:40 Dose: 1 each Fentanyl (Duragesic) 50 mcg TOPICAL Q72H [facility] Glucose (Insta-Glucose) 15 gm PO PRN PRN PRN Reason: Hypoglycemia Guaifenesin/Codeine Phosphate (Robitussin Ac) 10 ml PO Q4HP PRN PRN Reason: Cough Last Admin: 06/17/17 21:54 Dose: 10 ml Acetaminophen (Ofirmev) 1,000 mg in 100 mls @ 200 mls/hr IV Q6HP PRN PRN Reason: PAIN/FEVER > 101 Insulin Glargine (Lantus) 10 unit SQ BID [facility] Last Admin: 06/17/17 21:42 Dose: 10 unit Insulin Human Lispro (Humalog) 0 unit SQ ACHS [facility] PRN Reason: Protocol Last Admin: 06/17/17 21:42 Dose: 6 unit Iron Carb/Multivit/[place]/Folic Acid (Multivitamin W/Minerals) 1 tab PO DAILY [facility] Levofloxacin (Levaquin) 750 mg PO DAILY [facility] Levothyroxine Sodium (Synthroid) 12.5 mcg PO QAMAC [facility] Magnesium Oxide (Magnesium Oxide) 400 mg PO BID [facility] Last Admin: 06/17/17 21:40 Dose: 400 mg [facility] ([facility]uc[facility]) [facility] Last Admin: 06/17/17 18:53 Dose: 850 mg Methocarbamol (Robaxin) 500 mg PO QIDP PRN PRN Reason: Pain Naloxone HCl (Narcan) 0.1 mg IV Q2MIN PRN PRN Reason: Opiate Reversal Nystatin (Nystatin Crm) 1 dose TOPICAL TID [facility] Last Admin: 06/17/17 21:43 Dose: 1 dose Ondansetron HCl (Zofran) 4 mg IV Q4HP PRN PRN Reason: Nausea And Vomiting Oseltamivir Phosphate (Tamiflu) 75 mg PO BID [facility] Stop: 06/20/17 22:23 Last Admin: 06/17/17 21:41 Dose: 75 mg Paroxetine HCl (Paxil) 40 mg PO DAILY [facility] Pregabalin (Lyrica) 50 mg PO BID [facility] Last Admin: 06/17/17 21:42 Dose: 50 mg Fluticasone/Salmeterol (Advair 250-50 Diskus) 1 puff INH BID [facility] Last Admin: 06/17/17 21:20 Dose: Not Given Sitagliptin Phosphate (Januvia) 100 mg PO DAILY [facility] Trazodone HCl (Desyrel) 100 mg PO HS [facility] Last Admin: 06/17/17 21:41 Dose: 100 mg Vitamin D (Vitamin D3) 400 unit PO DAILY [facility] Medical - PN: A/P - Time Spent With Patient Total time spent is greater than 50% in coordination of care (as documented) at patient's floor/unit and/or counseling patient: less than 15 minutes - Narrative A/P Narrative: A/P Acute COPD exacerbation: Patient has kamran poor air entry and URI symptoms with cough and shortness of breath, will treat as copd exacerbation, X ray chest is reported negative. Treat with PO prednisone 60 mg, DUonebs q4hrs, and Levofloxacin. Give tamiflu x 5 days. (noted flu test is neg, but high disease prevalence) lactic acidosis resolved: No more IVF, patient toleratinng po diet well, UTI: abnl UA noted, cultures awaited, levofloxa should cover Chr resp failure: Uses 2 L oxygen at baseline ,on same does now continue same CHF Diastolic: monitor bp, Her Chest x ray is interpreted as mild chf, bnp is mildly elevated, however patient clinically is dry, dry mucosa, no edema, hold diuretics (aldactone), resume once bp stable and patient well hydrated. HTN: Continue to hold bp meds today, resume tomorrow, once bp remains stable x 48 hrs. Hypothyroidism: TSH elevated > 10, start on low dose of levothyroxine at 12.5mcg and monitor. Atrial fibrillation: EKG appeared sinus, on amiodarone and metoprolol, on eliquis for anticoagulation, continue same. Back pain/ Fibromyalgia: Chr issues, treat with home pain meds, she is already on fentanyl patch and hydrocodone orally, gabapentin. Avoid IV narcoticsas much as possible unless pt wishes for hospice/ palliative care. DM: hold metformin, continue with januvia and sliding scale insulin. Incresase dose of sliding scale to med dose protocol, and add lantus 10units bid DVT on eliquis GI prophylaxis, famotid DNR code status, Medical - PN: Qual - VTE Deep Vein Thrombosis/Pulmonary Embolism Present on Admission: No
[2017-06-18] MEDS: HYDROcodone/APAP 5/325MG TABLET PO PRN ×2 (01:57→08:23)
[2017-06-18] MEDS: IPRATROPIUM/ALBUTEROL 3 ML AMPUL.NEB NEB SCH ×2 (01:57→07:32)
[2017-06-18] MEDS: guaiFENesin/CODEINE 10 ML UDC PO PRN ×2 (01:57→08:22)
[2017-06-18 06:56] LABS: Basophils # (Auto) 0 K/mcL (0.0-0.3); Basophils % (Auto) 0.4 % (0.0-2.0); Eosinophils # (Auto) 0.4 K/mcL (0.0-0.7); Eosinophils % (Auto) 3.6 % (0.0-7.0); Granulocytes % (Auto) 66.2 % (38.0-78.0); Lymphocytes # (Auto) 2.5 K/mcL (1.5-4.8); Lymphocytes % (Auto) 22.5 % (15.5-49.0); Mean Cell Volume 88.2 fL (80.0-100.0); Mean Corpuscular HGB Conc 32.8 g/dL (31.0-36.0); Mean Corpuscular Hemoglobin 28.9 pg (26.0-34.0); Monocytes # (Auto) 0.8 K/mcL (0.1-0.9); Monocytes % (Auto) 7.3 % (1.0-12.0); Platelet Count 264 K/mcL (140-440); RBC 3.95 M/mcL (4.00-5.20); Red Cell Distribution Width 15.1 % (11.5-14.5)
[2017-06-18] MEDS ORDERED: LEVOTHYROXINE 25 MCG TABLET PO SCH (07:30)
[2017-06-18] MEDS: FLUTICASONE/SALMETEROL 250/50 INHALER #14 INH SCH (07:32)
[2017-06-18] MEDS ORDERED: AMIODARONE HCL 200 MG TABLET PO SCH (08:00)
[2017-06-18 08:03] LABS: Hemoglobin A1C 9.3 % HGB (4.0-6.0)
[2017-06-18] MEDS: MAGNESIUM OXIDE 400 MG TABLET PO SCH (08:22)
[2017-06-18] MEDS ORDERED: IPRATROPIUM/ALBUTEROL 3 ML AMPUL.NEB NEB PRN ×2 (08:37→08:39)
[2017-06-18] MEDS: INSULIN LISPRO 1 UNIT/0.01 ML UNIT SQ SCH ×2 (08:50→12:30)
[2017-06-18] MEDS: INSULIN GLARGINE, HUMAN 1 UNIT/0.01 ML SQ SCH (08:51)
[2017-06-18] MEDS ORDERED: sitaGLIPtin 100 MG TABLET PO SCH (09:00)
[2017-06-18] MEDS ORDERED: MULTIVIT,THER IRON,CA,FA & MIN 1 TABLET PO SCH (09:00)
[2017-06-18] MEDS ORDERED: VITAMIN D3 400 UNIT TABLET PO SCH (09:00)
[2017-06-18] MEDS ORDERED: LEVOFLOXACIN 750 MG TABLET PO SCH (09:00)
[2017-06-18] MEDS ORDERED: PARoxetine 20 MG TABLET PO SCH (09:00)
[2017-06-18] MEDS: BENZONATATE 100 MG CAPSULE PO PRN (09:07)
[2017-06-18] MEDS: metFORMIN 850 MG TABLET PO SCH (09:07)
[2017-06-18] MEDS: OSELTAMIVIR PHOSPHATE 75 MG CAPSULE PO SCH (09:07)
[2017-06-18] MEDS: PREGABALIN 25 MG CAPSULE PO SCH (09:07)
[2017-06-18] MEDS: APIXABAN 5 MG TABLET PO SCH (09:08)
[2017-06-18] MEDS: NYSTATIN CRM 1 DOSE TUBE TOPICAL SCH (09:32)
--- NOTE | 2017-06-18 11:20 | Discharge Summary ---
Medical - DS: Prov Patient information: Note initiated : 06/18/17 at 11:01 am Service Date, if different from initiated Date: [] Patient: Sammie Mazariegos 61 y/o F admitted on 06/15/17 for SOB, Weakness/ COPD Exacerbation. Date of admission: 06/15/17 22:15 Discharge date: 06/18/17 Primary care physician: Katie Camp Consults: 06/15/17 21:23 Consult to Physician [CONS] Stat Comment: Consulting Provider: Lakeshia Del Castillo Reason For Exam: Physician to Consult Medical - DS: Meds - Discharge Medications Prescriptions: Benzonatate [Tessalon] 100 mg PO TIDP PRN #30 capsule PRN Reason: Cough guaiFENesin/CODEINE [Robitussin AC] 10 ml PO Q4HP PRN #1 udc PRN Reason: Cough Levofloxacin [Levaquin] 750 mg PO DAILY #1 tablet metFORMIN [Glucophage] 1,000 mg PO BIDCC #90 tablet Active and Home Medications: Home Medications Amiodarone HCl [Pacerone] 400 mg PO DAILY 11/13/16 [History Confirmed 06/16/17 Last Taken 06/15/17 09:00] Atorvastatin [Lipitor] 40 mg PO HS 11/13/16 [History Confirmed 06/16/17 Last Taken 06/14/17 19:09] Fluticasone/Salmeterol [Advair 250-50 Diskus] 1 puff INH BID 11/13/16 [History Confirmed 06/16/17 Last Taken 06/15/17 14:45] HYDROcodone/APAP 5/325MG [[place] 5/325Mg] 2 tab PO Q4HP PRN 11/13/16 [History Confirmed 06/16/17 Last Taken 06/15/17 14:12] Lisinopril [Zestril] 10 mg PO DAILY 11/13/16 [History Confirmed 06/16/17 Last Taken 06/15/17 14:45] Loratadine [Claritin] 10 mg PO DAILY 11/13/16 [History Confirmed 06/16/17 Last Taken 06/15/17 09:59] Methocarbamol [Robaxin] 500 mg PO QIDP PRN 11/13/16 [History Confirmed 06/16/17 Last Taken 06/15/17 14:00] PARoxetine HCL [Paxil] 40 mg PO DAILY 11/13/16 [History Confirmed 06/16/17 Last Taken 06/15/17 14:45] Spironolactone [Aldactone] 25 mg PO DAILY 11/13/16 [History Confirmed 06/16/17 Last Taken 06/15/17 09:59] Theophylline Anhydrous [[place]-24] 300 mg PO DAILY 11/13/16 [History Confirmed 01/24 Last Taken 06/15/17 09:59] metFORMIN [Glucophage] 500 mg PO BIDCC 11/13/16 [History Confirmed 06/16/17 Last Taken 06/15/17 14:45] sitaGLIPtin [Januvia] 100 mg PO DAILY 11/13/16 [History Confirmed 06/16/17 Last Taken 06/15/17 09:59] traZODone HCL [Trazodone HCl] 100 mg PO HS 11/13/16 [History Confirmed 06/16/17 Last Taken 06/14/17 19:00] Apixaban [Eliquis] 5 mg PO BID 05/13/17 [History Confirmed 06/16/17 Last Taken 06/15/17 14:45] Cholecalciferol (Vitamin D3) [Delta D3] 400 unit PO DAILY 05/13/17 [History Confirmed 06/16/17 Last Taken 06/15/17 09:39] Metoprolol Succinate [Toprol Xl] 50 mg PO BID 05/13/17 [History Confirmed Last Taken 06/15/17 15:18] Multivitamin [One Daily] 1 each PO DAILY 05/13/17 [History Confirmed 06/16/17 Last Taken 06/15/17 09:59] Ondansetron [Zofran Odt] 8 mg PO Q8HP PRN 05/13/17 [History Confirmed 06/16/17 Last Taken 06/12/17] Pregabalin [Lyrica] 50 mg PO BID 05/13/17 [History Confirmed 06/16/17 Last Taken 06/15/17 14:45] Ubidecarenone [Co Q-10] 200 mg PO DAILY 05/13/17 [History Confirmed 06/16/17 Last Taken 06/15/17 09:59] Vitamin B Complex [Ultra B-100 Complex] 1 each PO DAILY 05/13/17 [History Confirmed 06/16/17 Last Taken 06/15/17 09:59] fentaNYL [Fentanyl] 50 mcg TD Q72H 05/13/17 [History Confirmed 06/16/17 Last Taken 06/13/17 08:55] Fexofenadine [Aster] 180 mg PO DAILY PRN 06/16/17 [History Confirmed 06/16/17 Last Taken 06/15/17 09:00] P-Ephed HCl/Codeine/Guaifen [Guaifenesin DAC Oral Solution] 10 ml PO Q4H PRN 01/24 [History Confirmed 06/16/17 Last Taken 06/15/17 14:05] Medical - DS: Hosp Hospital course: Mr. Mazariegos is a 61 year old F Discharge diagnosis: COPD exacerbation, acute bronchitis Secondary discharge diagnosis: Type 2 DM. Poorly controlled. A1C 06/18: 9.3 Chronic atrial fibrillation HTN Morbid obesity Reason for admission: Shorhtness of breath, cough and congestion Pertinent studies/significant findings: Ms. Mazariegos is a 61 year old Female who presents to the hospital today from [facility] for shortness of breath, cough and chest pains. The patient notes that she was at her baseline status approximately 5 days ago, she then started to develop cough, shortness of breath and chest pain, cough and shortness of breath has been progressively getting worse, the patient cough is associated with yellowish green sputum, she notes she has chest tightness as well as chest pain with her coughing. Her shortness of breath has been progressively getting worse and therefore she presented to the hospital for further management. The patient notes that there are a few [place] residents with the flu In the ER the patient had a low grade temperature, her bp was low normal, she had leucocytosis, hematuria with few wbc, CXR interpreted as mild chf/ fluid overload, the patient was admitted to the hospital for further management. The patient note she has childhood asthma, taking theophyllline since then? she has h/o congestive heart failure (diastolic as for snf notes), copd, afib on anticoagulation. she has been a SNF resident since last year, as she did not have any place to go. She notes she wishes to be comfortable, and does not wish any aggressive interventions, she declined cpr, as well as intubation, said no to bipap. The patient notes she had soem dizziness and headaches, no issues with swallowing, no hearing or vision issues, chr abdominal pain and some nausea, no constipation or diarrhea, no urinary complaints. no edema feet, chr joint and back pain. has depression. Jun 16 patient seen examined this AM doing well, was sitting comforably in bed, has no acute concerns, but does have some cough Tessalon perles and robitussin AC for cough The patients urine is growing gram neg bacillus blood cx is neg she remains on levofloxax for bronchitis and UTI, descalate therapy as per sensitivities or adjust medications as needed. Patients pain control is reasonable, leucocytosis is improving. Jun 17 Doing well. Off steroids x 24 hours. on po Levofloxacin Ambulating On usual nocturnal O2 A1C is 9.3. Need to increase Metformin. Explained to patient PLAN: Discharge back home (SNF) - Time Spent with Patient Total time spent providing and/or coordinating discharge services: Medical - DS: Exam - Constitutional Vitals: Vital Signs Temp Pulse Pulse Resp BP Pulse Ox 06/18/17 08:00 97.1 F 64 19 117/68 95 06/18/17 07:32 80 17 06/18/17 04:00 57 L 20 102/58 96 06/18/17 00:00 98.2 F 88 18 95 06/17/17 20:00 66 18 144/77 96 06/17/17 16:00 98.6 F 62 16 132/68 94 06/17/17 12:00 98.1 F 70 16 127/78 94 Intake and Output 06/17/17 06/18/17 06/18/17 21:59 05:59 13:59 Intake Total 480 / 480 Balance 480 / 480 Intake: Oral 480 / 480 Other: Meal Nourishment/Supplement Percent of Meal Consumed 100% # Voids 1 4 # Bowel Movements 1 Weight 234 lb General appearance: no acute distress, obese - Respiratory Respiratory exam: Absent: accessory muscle use, prolonged expiratory phase, respiratory distress, rhonchi, wheezes - Cardiovascular Cardiovascular exam: Present: irregular rhythm - GI/Abdominal GI/Abdominal exam: Present: normal bowel sounds, soft - Extremities Exam Extremities exam: Present: normal inspection. Absent: calf tenderness, pedal edema Medical - DS: Data Labs on day of discharge: Labs from last 24 hours 06/18/17 06/18/17 03:30 03:30 WBC 10.9 RBC 3.95 L Hgb 11.4 L Hct 34.9 L MCV 88.2 MCH 28.9 MCHC 32.8 RDW 15.1 H Plt Count 264 MPV 8.7 Gran % 66.2 Lymph % (Auto) 22.5 [place] % (Auto) 7.3 Eos % (Auto) 3.6 Baso % (Auto) 0.4 Gran # 7.2 Lymph # (Auto) 2.5 [place] # (Auto) 0.8 Eos # (Auto) 0.4 Baso # (Auto) 0 Hemoglobin A1c 9.3 H Estim Average Glucose 220 Preliminary micro results at discharge 06/15/17 19:30 Blood Culture - Preliminary Blood 06/15/17 19:12 Blood Culture - Preliminary Blood Laboratory Results - last 72 hr 06/15/17 06/15/17 06/15/17 19:12 19:12 19:12 WBC 13.1 H RBC 4.27 Hgb 12.1 Hct 37.4 MCV 87.6 MCH 28.4 MCHC 32.5 RDW 15.5 H Plt Count 285 MPV 8.8 Gran % 69.3 Lymph % (Auto) 20.7 [place] % (Auto) 7.1 Eos % (Auto) 2.7 Baso % (Auto) 0.2 Gran # 9.0 H Lymph # (Auto) 2.7 [place] # (Auto) 0.9 Eos # (Auto) 0.4 Baso # (Auto) 0 VBG Lactic Acid 2.9 H Sodium 140 Potassium 4.4 Chloride 97 Carbon Dioxide 27 Anion Gap 16.0 BUN 12 Creatinine 0.8 GFR Calculation 78 Glucose 214 H Hemoglobin A1c Estim Average Glucose Uric Acid Calcium 9.5 Phosphorus Magnesium Total Bilirubin 0.3 Direct Bilirubin GGT AST 100 H ALT 77 H Alkaline Phosphatase 94 Lactate Dehydrogenase Troponin T NT-Pro-B Natriuret Pep Total Protein 7.5 Albumin 3.5 Globulin 4.0 H Albumin/Globulin Ratio 0.9 L Triglycerides Lipase 24 Procalcitonin TSH Free T4 Urine Color Urine Appearance Urine pH Ur Specific [place] Urine Protein Urine Glucose (UA) Urine Ketones Urine Occult Blood Urine Nitrate Urine Bilirubin Urine Urobilinogen Ur Leukocyte Esterase Urine RBC Urine WBC Ur Squamous Epith Cells Calcium Oxalate Crystal Urine Bacteria Ur Culture Indicated? Theophylline 06/15/17 06/15/17 06/15/17 19:12 19:12 19:12 WBC RBC Hgb Hct MCV MCH MCHC RDW Plt Count MPV Gran % Lymph % (Auto) [place] % (Auto) Eos % (Auto) Baso % (Auto) Gran # Lymph # (Auto) [place] # (Auto) Eos # (Auto) Baso # (Auto) VBG Lactic Acid Sodium Potassium Chloride Carbon Dioxide Anion Gap BUN Creatinine GFR Calculation Glucose Hemoglobin A1c Estim Average Glucose Uric Acid Calcium Phosphorus Magnesium Total Bilirubin Direct Bilirubin GGT AST ALT Alkaline Phosphatase Lactate Dehydrogenase Troponin T < 0.01 NT-Pro-B Natriuret Pep 288.1 H Total Protein Albumin Globulin Albumin/Globulin Ratio Triglycerides Lipase Procalcitonin 0.25 TSH 11.07 H Free T4 Urine Color Urine Appearance Urine pH Ur Specific [place] Urine Protein Urine Glucose (UA) Urine Ketones Urine Occult Blood Urine Nitrate Urine Bilirubin Urine Urobilinogen Ur Leukocyte Esterase Urine RBC Urine WBC Ur Squamous Epith Cells Calcium Oxalate Crystal Urine Bacteria Ur Culture Indicated? Theophylline 06/15/17 06/15/17 06/15/17 19:12 20:00 22:32 WBC RBC Hgb Hct MCV MCH MCHC RDW Plt Count MPV Gran % Lymph % (Auto) [place] % (Auto) Eos % (Auto) Baso % (Auto) Gran # Lymph # (Auto) [place] # (Auto) Eos # (Auto) Baso # (Auto) VBG Lactic Acid 1.8 Sodium Potassium Chloride Carbon Dioxide Anion Gap BUN Creatinine GFR Calculation Glucose Hemoglobin A1c Estim Average Glucose Uric Acid Calcium Phosphorus Magnesium Total Bilirubin Direct Bilirubin GGT AST ALT Alkaline Phosphatase Lactate Dehydrogenase Troponin T NT-Pro-B Natriuret Pep Total Protein Albumin Globulin Albumin/Globulin Ratio Triglycerides Lipase Procalcitonin TSH Free T4 1.00 Urine Color [place] Urine Appearance Cloudy Urine pH 5.0 Ur Specific [place] 1.025 Urine Protein 100 A Urine Glucose (UA) 50 A Urine Ketones Neg Urine Occult Blood >=1.0 A Urine Nitrate Neg Urine Bilirubin Neg Urine Urobilinogen 2.0 A Ur Leukocyte Esterase Neg Urine RBC > 182 H Urine WBC 7 H Ur Squamous Epith Cells 1 Calcium Oxalate Crystal Mod A Urine Bacteria Few A Ur Culture Indicated? Yes Theophylline 06/16/17 06/16/17 06/16/17 03:33 03:33 03:33 WBC 11.5 H RBC 4.13 Hgb 11.8 L Hct 36.7 MCV 88.8 MCH 28.5 MCHC 32.1 RDW 15.1 H Plt Count 245 MPV 8.5 Gran % 84.3 H Lymph % (Auto) 12.1 L [place] % (Auto) 2.4 Eos % (Auto) 1.0 Baso % (Auto) 0.2 Gran # 9.7 H Lymph # (Auto) 1.4 L [place] # (Auto) 0.3 Eos # (Auto) 0.1 Baso # (Auto) 0 VBG Lactic Acid Sodium 142 Potassium 4.8 Chloride 102 Carbon Dioxide 24 Anion Gap 16.0 BUN 11 Creatinine 0.7 GFR Calculation 92 Glucose 221 H Hemoglobin A1c Estim Average Glucose Uric Acid 2.9 Calcium 9.1 Phosphorus 3.0 Magnesium 1.4 L Total Bilirubin 0.4 Direct Bilirubin < 0.2 GGT 117 H AST 82 H ALT 67 H Alkaline Phosphatase 82 Lactate Dehydrogenase 194 Troponin T NT-Pro-B Natriuret Pep Total Protein 7.0 Albumin 3.4 Globulin 3.6 Albumin/Globulin Ratio 0.9 L Triglycerides 131 Lipase Procalcitonin TSH Free T4 Urine Color Urine Appearance Urine pH Ur Specific [place] Urine Protein Urine Glucose (UA) Urine Ketones Urine Occult Blood Urine Nitrate Urine Bilirubin Urine Urobilinogen Ur Leukocyte Esterase Urine RBC Urine WBC Ur Squamous Epith Cells Calcium Oxalate Crystal Urine Bacteria Ur Culture Indicated? Theophylline 4.4 06/17/17 06/17/17 06/18/17 04:00 04:00 03:30 WBC 15.8 H 10.9 RBC 4.04 3.95 L Hgb 11.5 L 11.4 L Hct 35.7 L 34.9 L MCV 88.5 88.2 MCH 28.6 28.9 MCHC 32.3 32.8 RDW 14.9 H 15.1 H Plt Count 284 264 MPV 8.6 8.7 Gran % 74.7 66.2 Lymph % (Auto) 16.8 22.5 [place] % (Auto) 7.4 7.3 Eos % (Auto) 0.8 3.6 Baso % (Auto) 0.3 0.4 Gran # 11.8 H 7.2 Lymph # (Auto) 2.6 2.5 [place] # (Auto) 1.2 H 0.8 Eos # (Auto) 0.1 0.4 Baso # (Auto) 0 0 VBG Lactic Acid Sodium 137 Potassium 4.2 Chloride 98 Carbon Dioxide 27 Anion Gap 12.0 BUN 16 Creatinine 0.7 GFR Calculation 92 Glucose 236 H Hemoglobin A1c Estim Average Glucose Uric Acid 2.6 Calcium 9.2 Phosphorus 2.4 L Magnesium 2.0 Total Bilirubin 0.3 Direct Bilirubin < 0.2 GGT 112 H AST 54 H ALT 64 H Alkaline Phosphatase 88 Lactate Dehydrogenase 158 Troponin T NT-Pro-B Natriuret Pep Total Protein 6.8 Albumin 3.3 Globulin 3.5 Albumin/Globulin Ratio 0.9 L Triglycerides 145 Lipase Procalcitonin TSH Free T4 Urine Color Urine Appearance Urine pH Ur Specific [place] Urine Protein Urine Glucose (UA) Urine Ketones Urine Occult Blood Urine Nitrate Urine Bilirubin Urine Urobilinogen Ur Leukocyte Esterase Urine RBC Urine WBC Ur Squamous Epith Cells Calcium Oxalate Crystal Urine Bacteria Ur Culture Indicated? Theophylline 06/18/17 03:30 WBC RBC Hgb Hct MCV MCH MCHC RDW Plt Count MPV Gran % Lymph % (Auto) [place] % (Auto) Eos % (Auto) Baso % (Auto) Gran # Lymph # (Auto) [place] # (Auto) Eos # (Auto) Baso # (Auto) VBG Lactic Acid Sodium Potassium Chloride Carbon Dioxide Anion Gap BUN Creatinine GFR Calculation Glucose Hemoglobin A1c 9.3 H Estim Average Glucose 220 Uric Acid Calcium Phosphorus Magnesium Total Bilirubin Direct Bilirubin GGT AST ALT Alkaline Phosphatase Lactate Dehydrogenase Troponin T NT-Pro-B Natriuret Pep Total Protein Albumin Globulin Albumin/Globulin Ratio Triglycerides Lipase Procalcitonin TSH Free T4 Urine Color Urine Appearance Urine pH Ur Specific [place] Urine Protein Urine Glucose (UA) Urine Ketones Urine Occult Blood Urine Nitrate Urine Bilirubin Urine Urobilinogen Ur Leukocyte Esterase Urine RBC Urine WBC Ur Squamous Epith Cells Calcium Oxalate Crystal Urine Bacteria Ur Culture Indicated? Theophylline Medical - DS: A/P - Patient/Caregiver Discharge Instructions Activity: as per physical therapy Diet: Cardiac, Consistent Carbohydrate Additional Instructions: Continue O2 at 2L/min via NC HS Other Amb Orders: OT Discharge Order Location: Determined By Patient Physical Therapy at Discharge - General Location: Determined By Patient - Follow up Plan Follow up with: Katie Camp ARNP [Primary Care Provider] - Disposition: Xf SNF Prognosis: Good Rehab Potential: Good I certify that the patient requires SNF services: Yes Overall status at discharge: patient is progressing back to baseline Medical - DS: Qual - VTE Deep Vein Thrombosis/Pulmonary Embolism Present on Admission: No
[2017-06-19] MEDS ORDERED: fentaNYL 50 MCG PATCH TOPICAL SCH (10:00)
== END 2017-06-18 12:50 | DRG 191 ==
LOC: ED 18:37 → ICU 22:15
PROVIDERS: ADMIT Internal Medicine; ATTEND Specialist

== ENCOUNTER 2017-12-25 11:39 | Inpatient (IN) ==
[2017-12-25] MEDS ORDERED: IPRATROPIUM/ALBUTEROL 3 ML AMPUL.NEB NEB ONE ×2 (11:48→16:14)
--- NOTE | 2017-12-25 11:53 | Emergency Department Note ---
SOB HPI - General Chief Complaint: Shortness of Breath/Dyspnea Stated Complaint: Short of Breath/Cough Time Seen by Provider: 12/25/17 11:40 Source: patient Mode of arrival: EMS Limitations: no limitations - History of Present Illness 62-year-old female presents with cough that started last evening. She is requiring 3 L of oxygen and is around 90% oxygen saturation. She has a history of COPD and uses Advair twice a day. She is given an albuterol treatment in the ambulance which helped a little bit. She states she has chronic abdominal pain and back pain. She states it hurts when she coughs in her rib area. She is a DNR and comfort measures only. She states she has her own power of contract attorney and would like antibiotics and if she needs to stay in the hospital that is fine with her. Patient usually uses 2 L of oxygen at night - Related Data Home Medications Medication Instructions Recorded Confirmed Amiodarone HCl [Pacerone] 200 mg PO DAILY 11/13/16 12/25/17 Fluticasone/Salmeterol [Advair 1 puff INH BID 11/13/16 12/25/17 250-50 Diskus] Lisinopril [Zestril] 10 mg PO DAILY 11/13/16 12/25/17 Methocarbamol [Robaxin] 500 mg PO QIDP PRN 11/13/16 12/25/17 PARoxetine HCL [Paxil] 40 mg PO DAILY 11/13/16 12/25/17 sitaGLIPtin [Januvia] 100 mg PO DAILY 11/13/16 12/25/17 traZODone HCL [Trazodone HCl] 50 mg PO HS 11/13/16 12/25/17 Multivitamin [One Daily] 1 each PO DAILY 05/13/17 12/25/17 Ubidecarenone [Co Q-10] 200 mg PO DAILY 05/13/17 12/25/17 Vitamin B Complex [Ultra B-100 1 each PO DAILY 05/13/17 12/25/17 Complex] Bisacodyl [Dulcolax] 10 mg MA DAILYP PRN 12/25/17 12/25/17 Calcium Carbonate [Tums] 200 mg PO AC 12/25/17 12/25/17 Cetirizine HCl [Zyrtec] 10 mg PO DAILY 12/25/17 12/25/17 Fluticasone Propionate [Flonase] 1 spray NS Q6HP PRN 12/25/17 12/25/17 Levothyroxine [Synthroid] 125 mcg PO QAMAC 12/25/17 12/25/17 Loperamide HCl [Imodium A-D] 2 mg PO Q6HP PRN 12/25/17 12/25/17 Omeprazole 20 mg PO DAILY 12/25/17 12/25/17 Spironolactone [Aldactone] 25 mg PO DAILY 12/25/17 12/25/17 buPROPion HCL [Wellbutrin Sr] 150 mg PO DAILY 12/25/17 12/25/17 diphenhydrAMINE [Benadryl] 25 mg PO Q6HP PRN 12/25/17 12/25/17 guaiFENesin [Mucinex] 600 mg PO BID 12/25/17 12/25/17 Previous Rx's Medication Instructions Recorded Atorvastatin [Lipitor] 20 mg PO HS tablet 06/18/17 Benzonatate [Tessalon] 100 mg PO TIDP PRN #30 capsule 06/18/17 HYDROcodone/APAP 5/325MG [[place] 2 tab PO Q4HP PRN tablet 06/18/17 5-325Mg] Pregabalin [Lyrica] 50 mg PO BID #28 cap 06/18/17 Vitamin D3 400 unit PO DAILY tablet 06/18/17 fentaNYL [Fentanyl] 50 mcg TD Q72H #5 patch.td72 06/18/17 metFORMIN [Glucophage] 1,000 mg PO BIDCC #90 tablet 06/18/17 Allergies Allergy/AdvReac Type Severity Reaction Status Date / Time No Known Drug Allergies Allergy Verified 11/29/17 12:37 Review of Systems All systems ED: reviewed and negative except as stated. Past Medical History - Past Medical History Medical history: Reports: atrial fibrillation, CHF, COPD, DM, fibromyalgia, hyperlipidemia, hypertension Psychiatric history: Reports: no psych history RODEO CLOWN history: Reports: non-contributory Surgical history ED: Reports: non-contributory Family history: Reports: non-contributory - Social History smoking status: Current every day smoker Physical Exam Limitations: no limitations General appearance: alert, other (Pursed lip breathing) Head: atraumatic Eye: Present: normal appearance. Absent: conjunctival injection Neck: Present: normal inspection, full ROM Chest: Present: normal inspection, symmetric chest wall rise Respiratory: Present: other (Decreased left lower lobe with wheezing in all barros) Cardiovascular: Present: tachycardia, normal heart sounds Abdominal: Present: soft, tenderness, normal bowel sounds Abdominal tenderness: Present: diffuse Extremities: Present: other (Erythema bilateral ankles) Neurological: Present: alert, oriented X3 Psychiatric: Present: normal affect, normal mood Skin: Present: warm, dry, intact Course Course Narrative: The patient screens for sirs Patient will be admitted due to elevated pro-calcitonin and respiratory acidosis on ABG. She will be started on BiPAP Vital Signs Temperature 99.0 F H 12/25/17 11:39 Pulse Rate 103 H 12/25/17 11:39 Respiratory Rate 22 12/25/17 11:39 Blood Pressure 126/64 12/25/17 11:39 Pulse Oximetry (%) 92 12/25/17 11:39 Temperature 99.0 F H 12/25/17 11:39 Pulse Rate 102 H 12/25/17 14:15 Respiratory Rate 24 H 12/25/17 14:15 Blood Pressure 139/81 12/25/17 14:01 Pulse Oximetry (%) 90 12/25/17 14:15 Shortness of Breath/Dyspnea - Lab Data Lab results reviewed: Yes I reviewed the patient's lab results. Result diagrams: 12/25/17 12:04 12/25/17 12:04 Lab Results 12/25/17 12/25/17 12/25/17 Range/Units 12:04 12:04 12:04 WBC 14.6 H (4.5-11.0) K/mcL RBC 3.81 L (4.00-5.20) M/mcL Hgb 11.1 L (12.0-15.0) g/dL Hct 33.5 L (36.0-48.0) % MCV 88.1 (80.0-100.0) fL MCH 29.0 (26.0-34.0) pg MCHC 33.0 (31.0-36.0) g/dL RDW 15.3 H (11.5-14.5) % Plt Count 344 (140-440) K/mcL MPV 8.7 (7.4-10.4) fL Total Counted 100 Seg Neutrophils % 83 H (38-78) % Band Neutrophils % 2 (0-10) % Lymphocytes % 9 L (15-49) % Monocytes % (Manual) 6 (1-12) % Platelet Estimate Normal (NORMAL) RBC Morphology Normal (NORMAL) VBG Lactic Acid 1.6 (0.5-2.2) mmol/L Sodium 134 (133-145) mmol/L Potassium 4.5 (3.3-5.1) mmol/L Chloride 97 (96-108) mmol/L Carbon Dioxide 27 (22-30) mmol/L Anion Gap 10.0 (8-16) BUN 13 (8-23) mg/dl Creatinine 0.6 (0.6-1.1) mg/dl GFR Calculation 96 Glucose 153 H (70-105) mg/dL Calcium 9.7 (8.6-10.4) mg/dl Total Bilirubin 0.5 (0.0-1.0) mg/dL AST 307 H (0-37) U/l ALT 171 H (0-40) U/l Alkaline Phosphatase 157 H (39-117) U/L NT-Pro-B Natriuret Pep 578.8 H (0-125) pg/ml Total Protein 8.3 (5.9-8.4) gm/dL Albumin 3.0 L (3.2-5.2) gm/dL Globulin 5.3 H (2.2-3.7) gm/dL Albumin/Globulin Ratio 0.6 L (1.0-2.3) Procalcitonin (<0.10) ng/mL Urine Color Urine Appearance Urine pH (5.0-9.0) Ur Specific [place] (1.000-1.035) Urine Protein (NEG) mg/dL Urine Glucose (UA) (NEG) mg/dL Urine Ketones (NEG) mg/dL Urine Occult Blood (<0.03) mg/dL Urine Nitrate (NEG) Urine Bilirubin (NEG) mg/dL Urine Urobilinogen (NEG) mg/dL Ur Leukocyte Esterase (NEG) /uL Urine RBC (0-1) /hpf Urine WBC (0-4) /hpf Ur Squamous Epith Cells (0-4) /hpf Urine Bacteria (0) /hpf Hyaline Casts (0-2) /lpf Urine Mucus (0) /hpf Ur Culture Indicated? 07/19/18 07/19/18 Range/Units 12:11 13:10 WBC (4.5-11.0) K/mcL RBC (4.00-5.20) M/mcL Hgb (12.0-15.0) g/dL Hct (36.0-48.0) % MCV (80.0-100.0) fL MCH (26.0-34.0) pg MCHC (31.0-36.0) g/dL RDW (11.5-14.5) % Plt Count (140-440) K/mcL MPV (7.4-10.4) fL Total Counted Seg Neutrophils % (38-78) % Band Neutrophils % (0-10) % Lymphocytes % (15-49) % Monocytes % (Manual) (1-12) % Platelet Estimate (NORMAL) RBC Morphology (NORMAL) VBG Lactic Acid (0.5-2.2) mmol/L Sodium (133-145) mmol/L Potassium (3.3-5.1) mmol/L Chloride (96-108) mmol/L Carbon Dioxide (22-30) mmol/L Anion Gap (8-16) BUN (8-23) mg/dl Creatinine (0.6-1.1) mg/dl GFR Calculation Glucose (70-105) mg/dL Calcium (8.6-10.4) mg/dl Total Bilirubin (0.0-1.0) mg/dL AST (0-37) U/l ALT (0-40) U/l Alkaline Phosphatase (39-117) U/L NT-Pro-B Natriuret Pep (0-125) pg/ml Total Protein (5.9-8.4) gm/dL Albumin (3.2-5.2) gm/dL Globulin (2.2-3.7) gm/dL Albumin/Globulin Ratio (1.0-2.3) Procalcitonin 0.47 (<0.10) ng/mL Urine Color Yellow Urine Appearance Clear Urine pH 5.0 (5.0-9.0) Ur Specific [place] 1.014 (1.000-1.035) Urine Protein Neg (NEG) mg/dL Urine Glucose (UA) Negative (NEG) mg/dL Urine Ketones Neg (NEG) mg/dL Urine Occult Blood 0.2 A (<0.03) mg/dL Urine Nitrate Neg (NEG) Urine Bilirubin Neg (NEG) mg/dL Urine Urobilinogen Neg (NEG) mg/dL Ur Leukocyte Esterase Neg (NEG) /uL Urine RBC 22 H (0-1) /hpf Urine WBC 3 (0-4) /hpf Ur Squamous Epith Cells 0 (0-4) /hpf Urine Bacteria 0 (0) /hpf Hyaline Casts 5 H (0-2) /lpf Urine Mucus Few (0) /hpf Ur Culture Indicated? No - Radiology Data Radiology results reviewed: Yes I reviewed the patient's radiology results. Pulmonary vascular congestion - EKG Data EKG attestation: Yes I reviewed and interpreted this EKG. EKG results narrative: No evidence of acute ischemia. Disposition Pt seen by PROJECT MANAGEMENT MANAGER/PA only: Yes Clinical Impression: Acute exacerbation of chronic obstructive airways disease, CHF (congestive heart failure), Respiratory acidosis Disposition: Xfer As Inpt ([facility]) Condition: Fair Referrals: Katie Camp ARNP [Primary Care Provider] -
--- NOTE | 2017-12-25 12:06 | XRay Report ---
HISTORY: Reason for Exam:cough, SOB FINDINGS: The heart is borderline enlarged but magnified by portable technique. The pulmonary vessels are mildly engorged. Lung volumes are normal and there is no consolidating infiltrate or pleural effusion. Incidentally noted is an old healed fracture in the right humeral neck. Plates and screws are present in the lower cervical spine. Comparison with the prior exam from 06/15/17 shows little change. IMPRESSION: Pulmonary vascular congestion Interpreted and Authenticated by: Jc Sky 12/25/17
[2017-12-25] MEDS ORDERED: 0.9 % SODIUM CHLORIDE 1,000 ML IV ONE (12:07)
[2017-12-25] MEDS ORDERED: FUROSEMIDE 20 MG/2 ML VIAL IV ONE (12:32)
[2017-12-25] MEDS ORDERED: BENZONATATE 100 MG CAPSULE PO ONE (12:36)
[2017-12-25 12:49] LABS: Mean Cell Volume 88.1 fL (80.0-100.0); Platelet Count 344 K/mcL (140-440); RBC 3.81 M/mcL (4.00-5.20); Red Cell Distribution Width 15.3 % (11.5-14.5)
[2017-12-25] MEDS ORDERED: cefTRIAXone 1 GM VIAL IV ONE (12:54)
[2017-12-25 13:04] LABS: ALT/SGPT 171 U/l (0-40); Albumin/Globulin Ratio 0.6 (1.0-2.3); Alkaline Phosphatase 157 U/L (39-117); Blood Urea Nitrogen 13 mg/dl (8-23); proBNP 578.8 pg/ml (0-125)
[2017-12-25 13:23] LABS: Band Neutrophils % 2 % (0-10); Lymphocytes % 9 % (15-49); Monocytes % (Manual) 6 % (1-12); Platelet Estimate NORMAL (NORMAL); RBC Morphology NORMAL (NORMAL); Segmented Neutrophils % 83 % (38-78)
[2017-12-25] MEDS ORDERED: oxyCODONE HCL 5 MG TABLET PO ONE (13:27)
[2017-12-25] MEDS ORDERED: oxyCODONE/APAP 5/325MG TABLET PO ONE (13:32)
[2017-12-25 13:45] LABS: Appearance,Urine CLEAR; Bacteria,Urine 0 /hpf (0); Bilirubin,Urine NEG (NEG); Color,Urine YELLOW; Glucose,Urine (UA) NEGATIVE (NEG); Leukocyte Esterase,Urine NEG /uL (NEG); Mucus,Urine FEW /hpf (0); Protein,Urine NEG (NEG); Specific Gravity,Urine 1.014 (1.000-1.035); Urine Blood 0.2 mg/dL (<0.03); Urine Hyaline Cast 5 /lpf (0-2); Urine RBC 22 /hpf (0-1); Urine Squamous Epithelial Cell 0 /hpf (0-4); Urine WBC 3 /hpf (0-4); Urobilinogen,Urine NEG (NEG)
[2017-12-25] MEDS ORDERED: LEVOFLOXACIN 750 MG/150 ML BAG IV ONE (14:07)
[2017-12-25] MEDS ORDERED: methylPREDNISolone SOD SUCC 125 MG/2 ML VIAL IV ONE (14:07)
[2017-12-25] MEDS ORDERED: guaiFENesin/DEXTROMETHORPHAN ORAL SOL PO ONE (14:09)
[2017-12-25] MEDS ORDERED: ONDANSETRON 4 MG/2 ML VIAL IV PRN (15:28)
[2017-12-25] MEDS ORDERED: POTASSIUM CHLORIDE 20 MEQ PACKET PO PRN (15:28)
[2017-12-25] MEDS ORDERED: BISACODYL 10 MG SUPP.RECT PR PRN (15:28)
[2017-12-25] MEDS ORDERED: MAGNESIUM SULFATE 2 GM/50 ML BAG IV PRN (15:28)
[2017-12-25] MEDS ORDERED: ACETAMINOPHEN 325 MG TABLET PO PRN (15:28)
[2017-12-25] MEDS ORDERED: FLUTICASONE PROPIONATE SPRAY.NAS NS PRN (15:28)
[2017-12-25] MEDS ORDERED: cefTRIAXone 2 GM in DEXTROSE 5% IN WATER 50 ML IV SCH (15:28)
[2017-12-25] MEDS ORDERED: DEXTROSE 31 GM ORAL.SUSP PO PRN (15:28)
[2017-12-25] MEDS ORDERED: ACETAMINOPHEN 1,000 MG/100 ML BOTTLE IV PRN (15:28)
[2017-12-25] MEDS ORDERED: DEXTROSE 50% 50 ML VIAL IV PRN (15:28)
[2017-12-25] MEDS ORDERED: LOPERAMIDE 2 MG CAPSULE PO PRN (15:53)
[2017-12-25] MEDS: fentaNYL 50 MCG PATCH TOPICAL SCH (16:11)
[2017-12-25] MEDS: IPRATROPIUM/ALBUTEROL 3 ML AMPUL.NEB NEB SCH ×3 (16:14→23:48)
[2017-12-25] MEDS ORDERED: cefTRIAXone 2 GM VIAL ONE (16:19)
--- NOTE | 2017-12-25 17:10 | Internal Med History&Physical ---
Medical - H&P: [facility] Patient information: Note initiated : 12/25/17 at 5:05 pm Service Date, if different from initiated Date: [] Patient: Sammie Mazariegos a 62 y/o F admitted on 12/25/17 for Short of Breath/ Cough. Chief Complaint: [] Chief complaint: sob History of present illness: Ms. Mazariegos is a 62 year old F with a known history of COPD and active smoker presented to the ER with worsening shortness of breath that has progressed over the last couple of days. Symptoms that progressed with onset of cough for the last 24 hours. However there is no associated fever or chest pain. Patient has associated increasing somnolence and fatigue limiting her functionality. Her symptoms were not relieved by regular use of her Advair. She was subsequently brought in to [facility] ER. Initial workup was significant for pH 7.3/PCO2 64 along with chest infiltrates. Patient was started on antibiotic coverage and noninvasive ventilation light of hypercapnic encephalopathy and respiratory failure. Hospitalist service was consulted. At the time of evaluation patient is on BiPAP. She was able to answer a few questions and was able to provide limited history due to BiPAP mask. No family members were present Patient denies exposure to sick contacts. She denies changes in medications. She denies diarrhea dysuria but endorses to chronic back and abdominal pain. She denies weight loss or skin rash. Review of systems 10 point review systems was performed and is negative except as discussed above Medical - H&P: PMH Medical history: COPD on 2 L home oxygen CHF diastoilic afib on eliquis allergic rhinitis back pain fibromyalgia htn type 2 MD palma depression. morbid obesity Surgical history: cholecystectomy tonisllectomy Pertinent family history: mothers side has cancer father side has cardiac issues. Social history: lives in [facility] smoker denies recreational drugs and etoh. Medical - H&P: Meds Home Medications Medication Instructions Recorded Confirmed Type Amiodarone HCl [Pacerone] 200 mg PO DAILY 11/13/16 12/25/17 History Fluticasone/Salmeterol [Advair 1 puff INH BID 11/13/16 12/25/17 History 250-50 Diskus] Lisinopril [Zestril] 10 mg PO DAILY 11/13/16 12/25/17 History Methocarbamol [Robaxin] 500 mg PO QIDP PRN 11/13/16 12/25/17 History PARoxetine HCL [Paxil] 40 mg PO DAILY 11/13/16 12/25/17 History sitaGLIPtin [Januvia] 100 mg PO DAILY 11/13/16 12/25/17 History traZODone HCL [Trazodone HCl] 50 mg PO HS 11/13/16 12/25/17 History Multivitamin [One Daily] 1 each PO DAILY 05/13/17 12/25/17 History Ubidecarenone [Co Q-10] 200 mg PO DAILY 05/13/17 12/25/17 History Vitamin B Complex [Ultra B-100 1 each PO DAILY 05/13/17 12/25/17 History Complex] Atorvastatin [Lipitor] 20 mg PO HS tablet 06/18/17 12/25/17 Rx Benzonatate [Tessalon] 100 mg PO TIDP PRN #30 capsule 06/18/17 12/25/17 Rx HYDROcodone/APAP 5/325MG [[place] 2 tab PO Q4HP PRN tablet 06/18/17 12/25/17 Rx 5-325Mg] Pregabalin [Lyrica] 50 mg PO BID #28 cap 06/18/17 12/25/17 Rx Vitamin D3 400 unit PO DAILY tablet 06/18/17 12/25/17 Rx fentaNYL [Fentanyl] 50 mcg TD Q72H #5 patch.td72 06/18/17 12/25/17 Rx metFORMIN [Glucophage] 1,000 mg PO BIDCC #90 tablet 06/18/17 12/25/17 Rx Bisacodyl [Dulcolax] 10 mg LA DAILYP PRN 12/25/17 12/25/17 History Calcium Carbonate [Tums] 200 mg PO AC 12/25/17 12/25/17 History Cetirizine HCl [Zyrtec] 10 mg PO DAILY 12/25/17 12/25/17 History Fluticasone Propionate [Flonase] 1 spray NS Q6HP PRN 12/25/17 12/25/17 History Levothyroxine [Synthroid] 125 mcg PO QAMAC 12/25/17 12/25/17 History Loperamide HCl [Imodium A-D] 2 mg PO Q6HP PRN 12/25/17 12/25/17 History Omeprazole 20 mg PO DAILY 12/25/17 12/25/17 History Spironolactone [Aldactone] 25 mg PO DAILY 12/25/17 12/25/17 History buPROPion HCL [Wellbutrin Sr] 150 mg PO DAILY 12/25/17 12/25/17 History diphenhydrAMINE [Benadryl] 25 mg PO Q6HP PRN 12/25/17 12/25/17 History guaiFENesin [Mucinex] 600 mg PO BID 12/25/17 12/25/17 History Allergies Allergy/AdvReac Type Severity Reaction Status Date / Time No Known Drug Allergies Allergy Verified 11/29/17 12:37 Medical - H&P: Exam - Constitutional Vitals: Temp Pulse Resp BP Pulse Ox 97.3 F 90 17 110/62 94 12/25/17 15:28 12/25/17 16:14 12/25/17 16:14 12/25/17 15:28 12/25/17 15:51 General appearance: morbidly obese Exam: Respiratory distress Alert Anxious Head normocephalic Oral cavity dry No ear discharge S1 and S2 tachycardia ESM grade 1 Expiratory rhonchi and diminished breath sounds bases Abdomen soft Lower extremity lymphedema Skin no suspicious lesion Psych alert but anxious Neuro nonfocal moving all 4 extremities Medical - H&P: Reslt - Labs CBC & Chem 7: 12/26/17 04:00 12/26/17 04:00 Labs: Short CBC 12/25/17 Range/Units 12:04 WBC 14.6 H (4.5-11.0) K/mcL Hgb 11.1 L (12.0-15.0) g/dL Hct 33.5 L (36.0-48.0) % Plt Count 344 (140-440) K/mcL BMP 12/25/17 12:04 Sodium 134 Potassium 4.5 Chloride 97 Carbon Dioxide 27 BUN 13 Creatinine 0.6 Glucose 153 H Calcium 9.7 Liver Function 12/25/17 Range/Units 12:04 Total Bilirubin 0.5 (0.0-1.0) mg/dL AST 307 H (0-37) U/l ALT 171 H (0-40) U/l Alkaline Phosphatase 157 H (39-117) U/L Albumin 3.0 L (3.2-5.2) gm/dL Urine 07/19/18 Range/Units 13:10 Urine Color Yellow Urine Appearance Clear Urine pH 5.0 (5.0-9.0) Ur Specific [place] 1.014 (1.000-1.035) Urine Protein Neg (NEG) mg/dL Urine Glucose (UA) Negative (NEG) mg/dL Medical - H&P: A/P (1) Acute exacerbation of chronic obstructive airways disease Current visit: Yes Status: Acute Assessment 62-year-old female with a history of COPD and active smoker admitted with COPD exacerbation/severe dyspnea. * COPD exacerbation-continue inhaled bronchodilators/IV steroids and management per protocol. * Hypoxic hypercapnic respiratory failure- continue noninvasive ventilation/ supplemental oxygen. Serial blood gases chest imaging. Initial blood gas 7. * Chest infiltrates with elevated white count and pulmonary vascular congestion- empiric antibiotic coverage for community acquired pneumonia. De-escalate if no evidence of infection. Proplast on water and elevation of 0.47 * Dyspnea Secondary to above * DM type II continue prandial insulin/sitagliptin * Atrial fibrillation currently rate controlled on amiodarone. Not on anticoagulation * hyperlipidemia on statin * Anxiety disorder continue bupropion * Neuropathy continue Lyrica * Fibromyalgia/chronic pain on fentanyl patch/hydrocodone * Tobacco dependence-start nicotine patch * DNR * DVT prophylaxis on heparin Plan * Inpatient telemetry admitted in light of hypercapnic respiratory failure * Noninvasive ventilation/serial ABG * Pre-existing medical condition management as above * Steroids bronchodilators antibiotic coverage Critical care time spent over 35 minutes in addition to time spent on history and physical Medical - H&P: Qual - VTE Deep Vein Thrombosis/Pulmonary Embolism Present on Admission: No
[2017-12-25] MEDS: CALCIUM CARBONATE 500 MG TAB.CHEW PO SCH (17:46)
[2017-12-25] MEDS: INSULIN LISPRO 1 UNIT/0.01 ML UNIT SQ SCH ×2 (17:46→21:17)
[2017-12-25] MEDS: BUDESONIDE 0.5 MG/2 ML AMPUL.NEB NEB SCH (19:02)
[2017-12-25] MEDS: ATORVASTATIN 20 MG TABLET PO SCH (21:16)
[2017-12-25] MEDS: guaiFENesin 600 MG TAB.SR.12H PO SCH (21:16)
[2017-12-25] MEDS: SENNOSIDES/DOCUSATE SODIUM 1 TAB TABLET PO SCH (21:16)
[2017-12-25] MEDS: traZODone HCL 50 MG TABLET PO SCH (21:16)
[2017-12-25] MEDS: DOCUSATE SODIUM 100 MG CAPSULE PO SCH (21:16)
[2017-12-25] MEDS: HEPARIN 5,000 UNIT/ML VIAL SQ SCH (21:16)
[2017-12-25] MEDS: PREGABALIN 25 MG CAPSULE PO SCH (21:16)
[2017-12-25] MEDS: FLUTICASONE/SALMETEROL 250/50 INHALER #14 INH SCH (21:42)
[2017-12-25] MEDS: 0.9 % SODIUM CHLORIDE 10 ML SYRINGE IV SCH (23:06)
[2017-12-26] MEDS: IPRATROPIUM/ALBUTEROL 3 ML AMPUL.NEB NEB SCH ×6 (02:50→23:31)
[2017-12-26] MEDS: 0.9 % SODIUM CHLORIDE 10 ML SYRINGE IV SCH ×3 (05:30→20:17)
[2017-12-26 06:25] LABS: Mean Cell Volume 88.8 fL (80.0-100.0); Mean Corpuscular Hemoglobin 29.3 pg (26.0-34.0); Platelet Count 296 K/mcL (140-440); RBC 3.43 M/mcL (4.00-5.20); Red Cell Distribution Width 15.6 % (11.5-14.5)
[2017-12-26 06:53] LABS: ALT/SGPT 207 U/l (0-40); Albumin 2.6 gm/dL (3.2-5.2); Albumin/Globulin Ratio 0.5 (1.0-2.3); Alkaline Phosphatase 130 U/L (39-117); Bilirubin,Direct < 0.2 mg/dL (0.0-0.3); Blood Urea Nitrogen 16 mg/dl (8-23); Gamma Glutamyl Transpeptidase 266 U/L (5-36); Uric Acid 3.5 mg/dL (2.5-8.0)
--- NOTE | 2017-12-26 07:14 | Internal Med Progress Note ---
Medical - PN: Subj Patient information: Note initiated : 12/26/17 at 7:12 am Service Date, if different from initiated Date: [] Patient: Sammie Mazariegos a 62 y/o F admitted on 12/25/17 for Short of Breath, Cough/COPD Exacerbation. Chief Complaint: [] Interval history: Ms. Mazariegos is a 62 year old F from [facility] with a known history of COPD and active smoker presented to the ER with worsening shortness of breath that has progressed over the last couple of days. Symptoms that progressed with onset of cough for the last 24 hours. However there is no associated fever or chest pain. Patient has associated increasing somnolence and fatigue limiting her functionality. Her symptoms were not relieved by regular use of her Advair. She was subsequently brought in to [facility] ER. Initial workup was significant for pH 7.3/PCO2 64 along with chest infiltrates. Patient was started on antibiotic coverage and noninvasive ventilation light of hypercapnic encephalopathy and respiratory failure. Hospitalist service was consulted. At the time of evaluation patient is on BiPAP. She was able to answer a few questions and was able to provide limited history due to BiPAP mask. No family members were present 12/26- patient doing a lot better. No overnight events. No concerns per staff. Tolerated BiPAP overnight. White count down from 14-10,000. History of cirrhosis with elevated LFTs. Blood gas improved 7.34/59. Improving hypercapnic acidosis. Continue noninvasive ventilation. De-escalate antibiotics. - Constitutional Vitals: Vital Signs Temp Pulse Resp BP Pulse Ox 97.9 F 80 18 111/59 100 12/26/17 04:01 12/26/17 05:27 12/26/17 05:27 12/26/17 04:01 12/26/17 05:27 Period Temp Pulse Resp BP Sys/Parra Pulse Ox Last 24 Hr 97.3 F-99.0 F 78-104 15-27 98-139/51-81 89-100 Intake and Output 12/25/17 12/26/17 12/26/17 21:59 05:59 13:59 Intake Total 175 / 175 Output Total 600 / 600 550 / 550 Balance -425 / -425 -550 / -550 Weight 207 lb Intake & Output: Intake & Output 12/25/17 12/26/17 12/26/17 21:59 05:59 13:59 Intake Total 175 / 175 Output Total 600 / 600 550 / 550 Balance -425 / -425 -550 / -550 Weight 207 lb Intake: IV 175 / 175 Rocephin 2 gm In Dextrose 5% in 50 / 50 Water 50 ml @ 100 mls/hr IV Q24H [facility] Rx#:[id number] Output: Urine Catheter Amount 600 / 600 550 / 550 General appearance: no acute distress Exam: On noninvasive ventilation \minimally anxious Alert and oriented Nonlabored breathing No telemetry events Medical - PN: Obj Da - Labs CBC & Chem 7: 12/26/17 04:00 12/26/17 04:00 Labs: Abnormal Lab Results 12/26/17 12/26/17 12/25/17 04:00 04:00 13:10 WBC RBC 3.43 L Hgb 10.0 L Hct 30.4 L RDW 15.6 H Seg Neutrophils % Lymphocytes % Glucose 139 H GGT 266 H AST 315 H ALT 207 H Alkaline Phosphatase 130 H NT-Pro-B Natriuret Pep Albumin 2.6 L Globulin 4.8 H Albumin/Globulin Ratio 0.5 L Urine Occult Blood 0.2 A Urine RBC 22 H Hyaline Casts 5 H 12/25/17 12/25/17 12:04 12:04 WBC 14.6 H RBC 3.81 L Hgb 11.1 L Hct 33.5 L RDW 15.3 H Seg Neutrophils % 83 H Lymphocytes % 9 L Glucose 153 H GGT AST 307 H ALT 171 H Alkaline Phosphatase 157 H NT-Pro-B Natriuret Pep 578.8 H Albumin 3.0 L Globulin 5.3 H Albumin/Globulin Ratio 0.6 L Urine Occult Blood Urine RBC Hyaline Casts Meds: Medications Acetaminophen (Tylenol) 650 mg PO Q4-6HP PRN PRN Reason: PAIN/FEVER > 101 Hydrocodone Bitart/Acetaminophen ([place] 5/325mg) 2 tab PO Q4HP PRN PRN Reason: Pain Albuterol/Ipratropium (Duoneb) 3 ml NEB Q4HRT [facility] Last Admin: 12/26/17 02:50 Dose: 3 ml [facility] Atorvastatin Calcium (Lipitor) 20 mg PO [facility] Last Admin: 12/25/17 21:16 Dose: 20 mg Bisacodyl (Dulcolax) 10 mg IN DAILYP PRN PRN Reason: Constipation Budesonide (Pulmicort) 0.5 mg NEB Q12 [facility] Last Admin: 12/25/17 19:02 Dose: 0.5 mg Bupropion HCl (Wellbutrin Xl) 150 mg PO DAILY [facility] Calcium Carbonate/Glycine (Tums) 200 mg PO AC [facility] Last Admin: 12/25/17 17:46 Dose: Not Given Cetirizine HCl (Zyrtec) 10 mg PO DAILY [facility] Dextrose (Dextrose 50%) 0 ml IV UD PRN PRN Reason: Hypoglycemia Diagnostic Test (Pha) (Accu-Chek) 1 each FS ACHS [facility] Last Admin: 12/25/17 21:17 Dose: 1 each Docusate Sodium (Colace) 100 mg PO BID [facility] Last Admin: 12/25/17 21:16 Dose: 100 mg Fentanyl (Duragesic) 50 mcg TOPICAL Q72H [facility] Last Admin: 12/25/17 16:11 Dose: Not Given Fluticasone Propionate (Flonase) 1 spray NS Q6HP PRN PRN Reason: Allergy Symptoms Glucose (Insta-Glucose) 15 gm PO PRN PRN PRN Reason: Hypoglycemia Guaifenesin (Mucinex) 600 mg PO BID [facility] Last Admin: 12/25/17 21:16 Dose: 600 mg Guaifenesin/Codeine Phosphate (Robitussin Ac) 10 ml PO Q4HP PRN PRN Reason: Cough Heparin Sodium (Porcine) (Heparin) 5,000 unit SQ Q12 [facility] Last Admin: 12/25/17 21:16 Dose: 5,000 unit Ceftriaxone Sodium 2 gm/ (Dextrose) 50 mls @ 100 mls/hr IV Q24H [facility] Last Infusion: 12/25/17 19:00 Dose: Infused Levofloxacin (Levaquin) 750 mg in 150 mls @ 100 mls/hr IV Q24H [facility] Magnesium Sulfate (Magnesium Sulfate) 2 gm in 50 mls @ 50 mls/hr IV UD PRN PRN Reason: MG = or < 1.7 Acetaminophen (Ofirmev) 1,000 mg in 100 mls @ 200 mls/hr IV Q6HP PRN PRN Reason: PAIN/FEVER > 101 Insulin Human Lispro (Humalog) 0 unit SQ ACHS [facility]; Protocol Last Admin: 12/25/17 21:17 Dose: 2 unit Iron Carb/Multivit/Grinder Operator/Folic Acid (Multivitamin W/Minerals) 1 tab PO DAILY [facility] Levothyroxine Sodium (Synthroid) 125 mcg PO QAMAC [facility] Lisinopril (Zestril) 10 mg PO DAILY [facility] Loperamide HCl (Imodium) 2 mg PO Q6HP PRN PRN Reason: Diarrhea Methocarbamol (Robaxin) 500 mg PO QIDP PRN PRN Reason: Pain Omeprazole (Prilosec) 20 mg PO ACB [facility] Ondansetron HCl (Zofran) 4 mg IV Q4-6HP PRN PRN Reason: Nausea And Vomiting Paroxetine HCl (Paxil) 40 mg PO DAILY [facility] Potassium Chloride (Klor-Con) 40 meq PO DAILYP PRN PRN Reason: K+ < 3.5 Prednisone (Prednisone) 40 mg PO QAMCC [facility] Pregabalin (Lyrica) 50 mg PO TID [facility] Last Admin: 12/25/17 21:16 Dose: 50 mg Fluticasone/Salmeterol (Advair 250-50 Diskus) 1 puff INH BID [facility] Last Admin: 12/25/17 21:42 Dose: Not Given Senna/Docusate Sodium (Senna Plus Tablet) 1 tab PO HS [facility] Last Admin: 12/25/17 21:16 Dose: 1 tab Sitagliptin Phosphate (Januvia) 100 mg PO DAILY [facility] Sodium Chloride (Saline Flush) 10 ml IV Q8 [facility] Last Admin: 12/26/17 05:30 Dose: 10 ml Spironolactone (Aldactone) 25 mg PO DAILY [facility] Trazodone HCl (Desyrel) 50 mg PO HS [facility] Last Admin: 12/25/17 21:16 Dose: 50 mg Medical - PN: A/P - Time Spent With Patient Total time spent is greater than 50% in coordination of care (as documented) at patient's floor/unit and/or counseling patient: Greater than 35 minutes (critical care time) (1) Acute exacerbation of chronic obstructive airways disease Status: Acute Assessment and plan: Assessment 62-year-old female with a history of COPD and active smoker admitted with COPD exacerbation/severe dyspnea. * COPD exacerbation-platelet improvement noted. Continue inhaled bronchodilators/IV steroids and management per protocol. * Hypoxic hypercapnic respiratory failure- clinically improving noninvasive ventilation. Improved ABG with CO2 down to 59 pH up to 7.34. * Chest infiltrates with elevated white count and pulmonary vascular congestion- clinically improving. De-escalate antibiotics. * Dyspnea -Secondary to above, clinically improved * DM type II continue prandial insulin/sitagliptin * Atrial fibrillation currently rate controlled on amiodarone. Not on anticoagulation * hyperlipidemia on statin * Anxiety disorder continue bupropion * Neuropathy continue Lyrica * Fibromyalgia/chronic pain on fentanyl patch/hydrocodone * Tobacco dependence-start nicotine patch * DNR * DVT prophylaxis on heparin Plan * Wean BiPAP * DC Rocephin * Serial chest imaging and ABG * Pre-existing medical condition management as above * Steroids bronchodilators * Aggressive physical therapy * Transfer to [facility] once clinical resolution achieved Critical care time spent over 35 minutes in addition to time spent on history and physical Current Visit: Yes Medical - PN: Qual - VTE Deep Vein Thrombosis/Pulmonary Embolism Present on Admission: No
[2017-12-26 07:17] LABS: Band Neutrophils % 4 % (0-10); Lymphocytes % 13 % (15-49); Monocytes % (Manual) 6 % (1-12); Platelet Estimate NORMAL (NORMAL); RBC Morphology NORMAL (NORMAL); Segmented Neutrophils % 79 % (38-78)
[2017-12-26] MEDS: BUDESONIDE 0.5 MG/2 ML AMPUL.NEB NEB SCH ×2 (07:31→19:45)
[2017-12-26] MEDS: guaiFENesin/CODEINE 10 ML UDC PO PRN ×3 (07:43→17:52)
[2017-12-26] MEDS: INSULIN LISPRO 1 UNIT/0.01 ML UNIT SQ SCH ×4 (07:56→20:17)
[2017-12-26] MEDS: FLUTICASONE/SALMETEROL 250/50 INHALER #14 INH SCH ×2 (07:57→20:01)
[2017-12-26] MEDS: LISINOPRIL 10 MG TABLET PO SCH (08:01)
[2017-12-26] MEDS: HEPARIN 5,000 UNIT/ML VIAL SQ SCH ×2 (08:01→20:16)
[2017-12-26] MEDS: guaiFENesin 600 MG TAB.SR.12H PO SCH ×2 (08:01→20:16)
[2017-12-26] MEDS: predniSONE 20 MG TABLET PO SCH (08:01)
[2017-12-26] MEDS: SPIRONOLACTONE 25 MG TABLET PO SCH (08:01)
[2017-12-26] MEDS: DOCUSATE SODIUM 100 MG CAPSULE PO SCH ×2 (08:01→20:16)
[2017-12-26] MEDS: HYDROcodone/APAP 5/325MG TABLET PO PRN ×3 (08:01→17:52)
[2017-12-26] MEDS: MULTIVIT,THER IRON,CA,FA & MIN 1 TABLET PO SCH (08:01)
[2017-12-26] MEDS: OMEPRAZOLE 20 MG CAPSULE PO SCH (08:02)
[2017-12-26] MEDS: LEVOTHYROXINE 25 MCG TABLET PO SCH (08:02)
[2017-12-26] MEDS: CALCIUM CARBONATE 500 MG TAB.CHEW PO SCH ×3 (08:02→17:47)
[2017-12-26] MEDS: AMIODARONE HCL 200 MG TABLET PO SCH (08:02)
[2017-12-26] MEDS: buPROPion 150 MG TAB.XL.24H PO SCH (08:12)
[2017-12-26] MEDS: PREGABALIN 25 MG CAPSULE PO SCH ×3 (08:12→20:16)
[2017-12-26] MEDS: CETIRIZINE 10 MG TABLET PO SCH (08:12)
[2017-12-26] MEDS: sitaGLIPtin 100 MG TABLET PO SCH (08:13)
[2017-12-26] MEDS: PARoxetine 20 MG TABLET PO SCH (08:13)
[2017-12-26] MEDS: METHOCARBAMOL 500 MG TABLET PO PRN ×2 (08:13→15:32)
[2017-12-26] MEDS: LEVOFLOXACIN 750 MG/150 ML BAG IV SCH (09:31)
[2017-12-26] MEDS: fentaNYL 50 MCG PATCH TOPICAL SCH (12:02)
[2017-12-26] MEDS: ATORVASTATIN 20 MG TABLET PO SCH (20:16)
[2017-12-26] MEDS: traZODone HCL 50 MG TABLET PO SCH (20:16)
[2017-12-26] MEDS: SENNOSIDES/DOCUSATE SODIUM 1 TAB TABLET PO SCH (20:17)
[2017-12-27] MEDS: METHOCARBAMOL 500 MG TABLET PO PRN ×3 (02:48→17:55)
[2017-12-27] MEDS: HYDROcodone/APAP 5/325MG TABLET PO PRN ×5 (02:48→22:00)
[2017-12-27] MEDS: IPRATROPIUM/ALBUTEROL 3 ML AMPUL.NEB NEB SCH ×6 (03:32→22:44)
[2017-12-27] MEDS: 0.9 % SODIUM CHLORIDE 10 ML SYRINGE IV SCH ×3 (05:18→22:00)
[2017-12-27 05:36] LABS: Mean Corpuscular HGB Conc 32.9 g/dL (31.0-36.0); Mean Corpuscular Hemoglobin 29.3 pg (26.0-34.0); Platelet Count 296 K/mcL (140-440); Red Cell Distribution Width 15.4 % (11.5-14.5)
[2017-12-27 06:14] LABS: ALT/SGPT 181 U/l (0-40); Albumin 2.6 gm/dL (3.2-5.2); Albumin/Globulin Ratio 0.6 (1.0-2.3); Alkaline Phosphatase 131 U/L (39-117); Bilirubin,Direct < 0.2 mg/dL (0.0-0.3); Blood Urea Nitrogen 16 mg/dl (8-23); Gamma Glutamyl Transpeptidase 268 U/L (5-36); Uric Acid 2.9 mg/dL (2.5-8.0)
[2017-12-27 06:57] LABS: Anisocytosis 1+ (NONE SEEN); Band Neutrophils % 7 % (0-10); Basophils % (Manual) 1 % (0-2); Eosinophils % (Manual) 1 % (0-7); Lymphocytes % 17 % (15-49); Monocytes % (Manual) 9 % (1-12); Platelet Estimate NORMAL (NORMAL); RBC Morphology ABNORM (NORMAL); Segmented Neutrophils % 65 % (38-78)
[2017-12-27] MEDS: BUDESONIDE 0.5 MG/2 ML AMPUL.NEB NEB SCH ×2 (07:09→19:14)
[2017-12-27] MEDS: predniSONE 20 MG TABLET PO SCH (07:30)
[2017-12-27] MEDS: CALCIUM CARBONATE 500 MG TAB.CHEW PO SCH ×3 (07:30→17:55)
[2017-12-27] MEDS: AMIODARONE HCL 200 MG TABLET PO SCH (07:30)
[2017-12-27] MEDS: OMEPRAZOLE 20 MG CAPSULE PO SCH (07:30)
[2017-12-27] MEDS: LEVOTHYROXINE 25 MCG TABLET PO SCH (07:30)
[2017-12-27] MEDS: guaiFENesin/CODEINE 10 ML UDC PO PRN ×4 (07:30→22:01)
[2017-12-27] MEDS: FLUTICASONE/SALMETEROL 250/50 INHALER #14 INH SCH ×2 (07:32→21:58)
[2017-12-27] MEDS: INSULIN LISPRO 1 UNIT/0.01 ML UNIT SQ SCH ×4 (07:43→21:59)
[2017-12-27] MEDS: SPIRONOLACTONE 25 MG TABLET PO SCH (08:49)
[2017-12-27] MEDS: sitaGLIPtin 100 MG TABLET PO SCH (08:49)
[2017-12-27] MEDS: HEPARIN 5,000 UNIT/ML VIAL SQ SCH ×2 (08:49→20:32)
[2017-12-27] MEDS: guaiFENesin 600 MG TAB.SR.12H PO SCH ×2 (08:49→20:32)
[2017-12-27] MEDS: LISINOPRIL 10 MG TABLET PO SCH (08:49)
[2017-12-27] MEDS: MULTIVIT,THER IRON,CA,FA & MIN 1 TABLET PO SCH (08:49)
[2017-12-27] MEDS: DOCUSATE SODIUM 100 MG CAPSULE PO SCH ×2 (08:49→20:32)
[2017-12-27] MEDS: CETIRIZINE 10 MG TABLET PO SCH (08:49)
[2017-12-27] MEDS: PARoxetine 20 MG TABLET PO SCH (08:50)
[2017-12-27] MEDS: buPROPion 150 MG TAB.XL.24H PO SCH (08:50)
[2017-12-27] MEDS: PREGABALIN 25 MG CAPSULE PO SCH ×3 (08:50→20:32)
[2017-12-27 09:38] LABS: Hepatitis A Antibody IgM NON REACTIVE (NEGATIVE); Hepatitis B Core IgM NON REACTIVE (NEGATIVE); Hepatitis B Surface Antigen NEGATIVE (NEGATIVE); Hepatitis C Virus Antibody NON REACTIVE (NEGATIVE)
--- NOTE | 2017-12-27 09:50 | Internal Med Progress Note ---
Medical - PN: Subj Patient information: Note initiated : 12/27/17 at 9:46 am Service Date, if different from initiated Date: [] Patient: Sammie Mazariegos a 62 y/o F admitted on 12/25/17 for Short of Breath, Cough/COPD Exacerbation. Chief Complaint: [] Interval history: Ms. Mazariegos is a 62 year old F from [place] [facility] with a known history of COPD and active smoker presented to the ER with worsening shortness of breath that has progressed over the last couple of days. Symptoms that progressed with onset of cough for the last 24 hours. However there is no associated fever or chest pain. Patient has associated increasing somnolence and fatigue limiting her functionality. Her symptoms were not relieved by regular use of her Advair. She was subsequently brought in to [facility] ER. Initial workup was significant for pH 7.3/PCO2 64 along with chest infiltrates. Patient was started on antibiotic coverage and noninvasive ventilation light of hypercapnic encephalopathy and respiratory failure. Hospitalist service was consulted. At the time of evaluation patient is on BiPAP. She was able to answer a few questions and was able to provide limited history due to BiPAP mask. No family members were present 12/26- patient doing a lot better. No overnight events. No concerns per staff. Tolerated BiPAP overnight. White count down from 14-10,000. History of cirrhosis with elevated LFTs. Blood gas improved 7.34/59. Improving hypercapnic acidosis. Continue noninvasive ventilation. De-escalate antibiotics. 12/27-patient off noninvasive ventilation and currently on 5 L oxygen . Elevated transaminases with workup ongoing including echocardiogram/hepatitis panel. Discontinue statin and amiodarone. Use beta chun for rate control. CT chest no evidence of malignancy but extensive bilateral pneumonia. Speech therapy consulted. Continue diet per speech therapy recommendations and continue aspiration precautions. Transfer to medical floor in 24 hours - Constitutional Vitals: Vital Signs Temp Pulse Resp BP Pulse Ox 97.5 F 72 18 108/62 95 12/27/17 08:00 12/27/17 07:19 12/27/17 08:00 12/27/17 08:00 12/27/17 08:00 Period Temp Pulse Resp BP Sys/Parra Pulse Ox Last 24 Hr 97.0 F-98.2 F 62-88 13-24 93-123/49-89 93-100 Intake and Output 07/20/18 07/21/18 07/21/18 21:59 05:59 13:59 Intake Total 50 / 50 360 / 360 Output Total 400 / 400 176 / 176 200 / 200 Balance -350 / -350 184 / 184 -200 / -200 Weight 207 lb 3.2 oz Intake & Output: Intake & Output 12/26/17 12/27/17 12/27/17 21:59 05:59 13:59 Intake Total 50 / 50 360 / 360 Output Total 400 / 400 176 / 176 200 / 200 Balance -350 / -350 184 / 184 -200 / -200 Weight 207 lb 3.2 oz Intake: Oral 50 / 50 GI Tube Flush 360 / 360 Output: Urine Catheter Amount 400 / 400 Void Amount 175 / 175 200 / 200 # of times incontinent of urine Other: Meal Dinner Percent of Meal Consumed 50% # Voids 1 Medical - PN: Obj Da - Labs CBC & Chem 7: 12/27/17 03:48 12/27/17 03:48 Labs: Abnormal Lab Results 12/27/17 12/27/17 12/26/17 03:48 03:48 04:00 WBC 11.7 H RBC 3.50 L Hgb 10.2 L Hct 31.1 L RDW 15.4 H Seg Neutrophils % Lymphocytes % WBC Morphology Abnorm A Vacuolated Monocytes 1+ A RBC Morphology Abnorm A Anisocytosis 1+ A Anion Gap 7.0 L Glucose 139 H Phosphorus 2.5 L GGT 268 H 266 H AST 195 H 315 H ALT 181 H 207 H Alkaline Phosphatase 131 H 130 H NT-Pro-B Natriuret Pep Albumin 2.6 L 2.6 L Globulin 4.7 H 4.8 H Albumin/Globulin Ratio 0.6 L 0.5 L Urine Occult Blood Urine RBC Hyaline Casts 12/26/17 12/25/17 12/25/17 04:00 13:10 12:04 WBC RBC 3.43 L Hgb 10.0 L Hct 30.4 L RDW 15.6 H Seg Neutrophils % 79 H Lymphocytes % 13 L WBC Morphology Vacuolated Monocytes RBC Morphology Anisocytosis Anion Gap Glucose 153 H Phosphorus GGT AST 307 H ALT 171 H Alkaline Phosphatase 157 H NT-Pro-B Natriuret Pep 578.8 H Albumin 3.0 L Globulin 5.3 H Albumin/Globulin Ratio 0.6 L Urine Occult Blood 0.2 A Urine RBC 22 H Hyaline Casts 5 H 12/25/17 12:04 WBC 14.6 H RBC 3.81 L Hgb 11.1 L Hct 33.5 L RDW 15.3 H Seg Neutrophils % 83 H Lymphocytes % 9 L WBC Morphology Vacuolated Monocytes RBC Morphology Anisocytosis Anion Gap Glucose Phosphorus GGT AST ALT Alkaline Phosphatase NT-Pro-B Natriuret Pep Albumin Globulin Albumin/Globulin Ratio Urine Occult Blood Urine RBC Hyaline Casts Meds: Medications Hydrocodone Bitart/Acetaminophen ([place] 5/325mg) 2 tab PO Q4HP PRN PRN Reason: Pain Last Admin: 12/27/17 07:30 Dose: 2 tab Albuterol/Ipratropium (Duoneb) 3 ml NEB Q4HRT [facility] Last Admin: 12/27/17 07:09 Dose: 3 ml Bisacodyl (Dulcolax) 10 mg [place] DAILYP PRN PRN Reason: Constipation Budesonide (Pulmicort) 0.5 mg NEB Q12 [facility] Last Admin: 12/27/17 07:09 Dose: 0.5 mg Bupropion HCl (Wellbutrin Xl) 150 mg PO DAILY [facility] Last Admin: 12/27/17 08:50 Dose: 150 mg Calcium Carbonate/Glycine (Tums) 200 mg PO AC [facility] Last Admin: 12/27/17 07:30 Dose: 200 mg Cetirizine HCl (Zyrtec) 10 mg PO DAILY [facility] Last Admin: 12/27/17 08:49 Dose: 10 mg Dextrose (Dextrose 50%) 0 ml IV UD PRN PRN Reason: Hypoglycemia Diagnostic Test (Pha) (Accu-Chek) 1 each FS ACHS [facility] Last Admin: 12/27/17 07:32 Dose: 1 each Docusate Sodium (Colace) 100 mg PO BID [facility] Last Admin: 12/27/17 08:49 Dose: 100 mg Fentanyl (Duragesic) 50 mcg TOPICAL Q72H [facility] Last Admin: 12/26/17 12:02 Dose: 50 mcg Fluticasone Propionate (Flonase) 1 spray NS Q6HP PRN PRN Reason: Allergy Symptoms Glucose (Insta-Glucose) 15 gm PO PRN PRN PRN Reason: Hypoglycemia Guaifenesin (Mucinex) 600 mg PO BID [facility] Last Admin: 12/27/17 08:49 Dose: 600 mg Guaifenesin/Codeine Phosphate (Robitussin Ac) 10 ml PO Q4HP PRN PRN Reason: Cough Last Admin: 12/27/17 07:30 Dose: 10 ml Heparin Sodium (Porcine) (Heparin) 5,000 unit SQ Q12 [facility] Last Admin: 12/27/17 08:49 Dose: 5,000 unit Levofloxacin (Levaquin) 750 mg in 150 mls @ 100 mls/hr IV Q24H [facility] Last Infusion: 12/26/17 11:15 Dose: Infused Magnesium Sulfate (Magnesium Sulfate) 2 gm in 50 mls @ 50 mls/hr IV UD PRN PRN Reason: MG = or < 1.7 Last Infusion: 12/26/17 09:45 Dose: Infused Acetaminophen (Ofirmev) 1,000 mg in 100 mls @ 200 mls/hr IV Q6HP PRN PRN Reason: PAIN/FEVER > 101 Insulin Human Lispro (Humalog) 0 unit SQ ACHS [facility]; Protocol Last Admin: 12/27/17 07:43 Dose: Not Given Iron Carb/Multivit/Client Services Representative/Folic Acid (Multivitamin W/Minerals) 1 tab PO DAILY [facility] Last Admin: 12/27/17 08:49 Dose: 1 tab Levothyroxine Sodium (Synthroid) 125 mcg PO QAMAC [facility] Last Admin: 12/27/17 07:30 Dose: 125 mcg Lisinopril (Zestril) 10 mg PO DAILY [facility] Last Admin: 12/27/17 08:49 Dose: 10 mg Loperamide HCl (Imodium) 2 mg PO Q6HP PRN PRN Reason: Diarrhea Methocarbamol (Robaxin) 500 mg PO QIDP PRN PRN Reason: Pain Last Admin: 12/27/17 08:50 Dose: 500 mg Omeprazole (Prilosec) 20 mg PO ACB [facility] Last Admin: 12/27/17 07:30 Dose: 20 mg Ondansetron HCl (Zofran) 4 mg IV Q4-6HP PRN PRN Reason: Nausea And Vomiting Last Admin: 12/26/17 08:39 Dose: 4 mg Paroxetine HCl (Paxil) 40 mg PO DAILY [facility] Last Admin: 12/27/17 08:50 Dose: 40 mg Potassium Chloride (Klor-Con) 40 meq PO DAILYP PRN PRN Reason: K+ < 3.5 Prednisone (Prednisone) 40 mg PO [facility] Last Admin: 12/27/17 07:30 Dose: 40 mg Pregabalin (Lyrica) 50 mg PO TID [facility] Last Admin: 12/27/17 08:50 Dose: 50 mg Fluticasone/Salmeterol (Advair 250-50 Diskus) 1 puff INH BID [facility] Last Admin: 12/27/17 07:32 Dose: Not Given Senna/Docusate Sodium (Senna Plus Tablet) 1 tab PO HS [facility] Last Admin: 12/26/17 20:17 Dose: Not Given Sitagliptin Phosphate (Januvia) 100 mg PO DAILY [facility] Last Admin: 12/27/17 08:49 Dose: 100 mg Sodium Chloride (Saline Flush) 10 ml IV Q8 [facility] Last Admin: 12/27/17 05:18 Dose: 10 ml Spironolactone (Aldactone) 25 mg PO DAILY [facility] Last Admin: 12/27/17 08:49 Dose: 25 mg Trazodone HCl (Desyrel) 50 mg PO [facility] Last Admin: 12/26/17 20:16 Dose: 50 mg Medical - PN: A/P - Time Spent With Patient Total time spent is greater than 50% in coordination of care (as documented) at patient's floor/unit and/or counseling patient: (1) Acute exacerbation of chronic obstructive airways disease Status: Acute Assessment and plan: Assessment 62-year-old female with a history of COPD and active smoker admitted with COPD exacerbation/severe dyspnea. * COPD clinical improvement noted. Continue inhaled bronchodilators/oral steroids * Hypoxic hypercapnic respiratory failure- clinically improving. Off Noninvasive ventilation. Improved ABG with CO2 down to 59 pH up to 7.34. * Chest infiltrates atelectasis versus pneumonia- Continue Levaquin * Elevated liver enzymes along with cirrhosis on recent CT-unclear etiology at this time. Patient is due to follow up with [facility] Ramos as outpatient. 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 * Dyspnea -Secondary to above, clinically improved * DM type II continue prandial insulin/sitagliptin * Atrial fibrillation currently rate controlled . Start low-dose beta chun. Not on anticoagulation * hyperlipidemia on statin * Anxiety disorder continue bupropion * Neuropathy continue Lyrica * Fibromyalgia/chronic pain on fentanyl patch/hydrocodone * Tobacco dependence-start nicotine patch * DNR * DVT prophylaxis on heparin Plan * DC amiodarone/statin * Echocardiogram * Pre-existing medical condition management as above * Aggressive physical therapy * Transfer to [facility] once clinical resolution achieved Current Visit: Yes Medical - PN: Qual - VTE Deep Vein Thrombosis/Pulmonary Embolism Present on Admission: No
[2017-12-27] MEDS: LEVOFLOXACIN 750 MG/150 ML BAG IV SCH (11:53)
[2017-12-27] MEDS ORDERED: LEVOFLOXACIN 750 MG/150 ML BAG IV SCH (12:00)
--- NOTE | 2017-12-27 14:59 | XRay Report ---
HISTORY: Reason for Exam:Interval Change , cough, COPD and shortness of breath FINDINGS: Heart size is upper limits of normal and is slightly smaller today than it was on 12/25/17. The pulmonary vessels are still prominent. There is no consolidating infiltrate, mass or pleural effusion. The lung volumes are normal, without evidence of air trapping. IMPRESSION: Prominent pulmonary vessels bilaterally which may be due to pulmonary vascular congestion. Interpreted and Authenticated by: Jc Sky 12/27/17
[2017-12-27] MEDS: traZODone HCL 50 MG TABLET PO SCH (20:33)
[2017-12-27] MEDS: SENNOSIDES/DOCUSATE SODIUM 1 TAB TABLET PO SCH (20:33)
[2017-12-28] MEDS: IPRATROPIUM/ALBUTEROL 3 ML AMPUL.NEB NEB SCH ×6 (03:38→22:41)
[2017-12-28] MEDS: HYDROcodone/APAP 5/325MG TABLET PO PRN ×4 (03:52→19:49)
[2017-12-28] MEDS: guaiFENesin/CODEINE 10 ML UDC PO PRN ×4 (03:52→19:50)
[2017-12-28] MEDS: 0.9 % SODIUM CHLORIDE 10 ML SYRINGE IV SCH ×3 (05:27→20:22)
[2017-12-28 06:00] LABS: Mean Cell Volume 89.8 fL (80.0-100.0); Mean Corpuscular HGB Conc 32.5 g/dL (31.0-36.0); Mean Corpuscular Hemoglobin 29.2 pg (26.0-34.0); Platelet Count 289 K/mcL (140-440); RBC 3.59 M/mcL (4.00-5.20); Red Cell Distribution Width 14.9 % (11.5-14.5)
[2017-12-28 06:24] LABS: ALT/SGPT 167 U/l (0-40); Albumin 2.7 gm/dL (3.2-5.2); Albumin/Globulin Ratio 0.6 (1.0-2.3); Alkaline Phosphatase 140 U/L (39-117); Bilirubin,Direct < 0.2 mg/dL (0.0-0.3); Blood Urea Nitrogen 14 mg/dl (8-23); Gamma Glutamyl Transpeptidase 286 U/L (5-36); Uric Acid 2.4 mg/dL (2.5-8.0)
[2017-12-28] MEDS: BUDESONIDE 0.5 MG/2 ML AMPUL.NEB NEB SCH ×2 (07:13→19:20)
[2017-12-28 08:51] LABS: Band Neutrophils % 2 % (0-10); Eosinophils % (Manual) 1 % (0-7); Lymphocytes % 26 % (15-49); Monocytes % (Manual) 8 % (1-12); Platelet Estimate NORMAL (NORMAL); RBC Morphology NORMAL (NORMAL); Segmented Neutrophils % 63 % (38-78)
[2017-12-28] MEDS ORDERED: METOPROLOL TARTRATE 25 MG TABLET PO SCH (09:00)
--- NOTE | 2017-12-28 09:16 | Internal Med Progress Note ---
Medical - PN: Subj Patient information: Note initiated : 12/28/17 at 9:14 am Service Date, if different from initiated Date: [] Patient: Sammie Mazariegos a 62 y/o F admitted on 12/25/17 for Short of Breath, Cough/COPD Exacerbation. Chief Complaint: [] Interval history: Ms. Mazariegos is a 62 year old F from [facility] [place] with a known history of COPD and active smoker presented to the ER with worsening shortness of breath that has progressed over the last couple of days. Symptoms that progressed with onset of cough for the last 24 hours. However there is no associated fever or chest pain. Patient has associated increasing somnolence and fatigue limiting her functionality. Her symptoms were not relieved by regular use of her Advair. She was subsequently brought in to [facility] ER. Initial workup was significant for pH 7.3/PCO2 64 along with chest infiltrates. Patient was started on antibiotic coverage and noninvasive ventilation light of hypercapnic encephalopathy and respiratory failure. Hospitalist service was consulted. At the time of evaluation patient is on BiPAP. She was able to answer a few questions and was able to provide limited history due to BiPAP mask. No family members were present 12/26- patient doing a lot better. No overnight events. No concerns per staff. Tolerated BiPAP overnight. White count down from 14-10,000. History of cirrhosis with elevated LFTs. Blood gas improved 7.34/59. Improving hypercapnic acidosis. Continue noninvasive ventilation. De-escalate antibiotics. 12/27-patient off noninvasive ventilation and currently on 5 L oxygen . Elevated transaminases with workup ongoing including echocardiogram/hepatitis panel. Discontinue statin and amiodarone. Use beta chun for rate control. CT chest no evidence of malignancy but extensive bilateral pneumonia. Speech therapy consulted. Continue diet per speech therapy recommendations and continue aspiration precautions. Transfer to medical floor in 24 hours 12/28- patient doing a lot better.. Patient in good spirits This morning. Complains of generalized pain inadequately controlled on existing fentanyl and hydrocodone. However risk status improved. Currently on 6 L oxygen sats 95. Off amiodarone. In sinus rhythm. Start metoprolol 12.5 twice a day. Persistent elevated LFTs. Hepatitis panel negative. Echocardiogram pending results. X-ray chest no acute process. No overnight events including fever chills or concerns per nursing staff - Constitutional Vitals: Vital Signs Temp Pulse Resp BP Pulse Ox 98.8 F 66 14 111/69 96 12/28/17 01:00 12/28/17 07:22 12/28/17 07:22 12/28/17 03:48 12/28/17 07:14 Period Temp Pulse Resp BP Sys/Parra Pulse Ox Last 24 Hr 96.6 F-98.8 F 65-75 14-24 90-111/59-73 96-100 Intake and Output 12/27/17 12/28/17 12/28/17 21:59 05:59 13:59 Intake Total 360 / 360 200 / 200 Output Total 500 / 500 951 / 951 Balance -140 / -140 -751 / -751 Weight 201 lb 11.2 oz Intake & Output: Intake & Output 12/27/17 12/28/17 12/28/17 21:59 05:59 13:59 Intake Total 360 / 360 200 / 200 Output Total 500 / 500 951 / 951 Balance -140 / -140 -751 / -751 Weight 201 lb 11.2 oz Intake: Oral 360 / 360 GI Tube Flush 200 / 200 Output: Void Amount 500 / 500 950 / 950 # of times incontinent of urine 1 / Other: Meal Dinner Percent of Meal Consumed 100% Feeding Ability Independent # Voids 1 1 General appearance: no acute distress Exam: Alert oriented Nonlabored breathing Telemetry sinus rhythm On 3 L oxygen No lymphedema Medical - PN: Obj Da - Labs CBC & Chem 7: 12/28/17 04:02 12/28/17 04:02 Labs: Abnormal Lab Results 12/28/17 12/28/17 12/27/17 04:02 04:02 03:48 WBC 11.9 H RBC 3.59 L Hgb 10.5 L Hct 32.2 L RDW 14.9 H Seg Neutrophils % Lymphocytes % WBC Morphology Vacuolated Monocytes RBC Morphology Anisocytosis Anion Gap 7.0 L 7.0 L Glucose 117 H Uric Acid 2.4 L Phosphorus 2.0 L 2.5 L GGT 286 H 268 H AST 170 H 195 H ALT 167 H 181 H Alkaline Phosphatase 140 H 131 H NT-Pro-B Natriuret Pep Albumin 2.7 L 2.6 L Globulin 4.7 H 4.7 H Albumin/Globulin Ratio 0.6 L 0.6 L Urine Occult Blood Urine RBC Hyaline Casts 12/27/17 12/26/17 12/26/17 03:48 04:00 04:00 WBC 11.7 H RBC 3.50 L 3.43 L Hgb 10.2 L 10.0 L Hct 31.1 L 30.4 L RDW 15.4 H 15.6 H Seg Neutrophils % 79 H Lymphocytes % 13 L WBC Morphology Abnorm A Vacuolated Monocytes 1+ A RBC Morphology Abnorm A Anisocytosis 1+ A Anion Gap Glucose 139 H Uric Acid Phosphorus GGT 266 H AST 315 H ALT 207 H Alkaline Phosphatase 130 H NT-Pro-B Natriuret Pep Albumin 2.6 L Globulin 4.8 H Albumin/Globulin Ratio 0.5 L Urine Occult Blood Urine RBC Hyaline Casts 12/25/17 12/25/17 12/25/17 13:10 12:04 12:04 WBC 14.6 H RBC 3.81 L Hgb 11.1 L Hct 33.5 L RDW 15.3 H Seg Neutrophils % 83 H Lymphocytes % 9 L WBC Morphology Vacuolated Monocytes RBC Morphology Anisocytosis Anion Gap Glucose 153 H Uric Acid Phosphorus GGT AST 307 H ALT 171 H Alkaline Phosphatase 157 H NT-Pro-B Natriuret Pep 578.8 H Albumin 3.0 L Globulin 5.3 H Albumin/Globulin Ratio 0.6 L Urine Occult Blood 0.2 A Urine RBC 22 H Hyaline Casts 5 H Meds: Medications Hydrocodone Bitart/Acetaminophen ([place] 5/325mg) 2 tab PO Q4HP PRN PRN Reason: Pain Last Admin: 12/28/17 03:52 Dose: 2 tab Albuterol/Ipratropium (Duoneb) 3 ml NEB Q4HRT [facility] Last Admin: 12/28/17 07:13 Dose: 3 ml Bisacodyl (Dulcolax) 10 mg [place] DAILYP PRN PRN Reason: Constipation Budesonide (Pulmicort) 0.5 mg NEB Q12 [facility] Last Admin: 12/28/17 07:13 Dose: 0.5 mg Bupropion HCl (Wellbutrin Xl) 150 mg PO DAILY [facility] Last Admin: 12/27/17 08:50 Dose: 150 mg Calcium Carbonate/Glycine (Tums) 200 mg PO AC [facility] Last Admin: 12/27/17 17:55 Dose: 200 mg Cetirizine HCl (Zyrtec) 10 mg PO DAILY [facility] Last Admin: 12/27/17 08:49 Dose: 10 mg Dextrose (Dextrose 50%) 0 ml IV UD PRN PRN Reason: Hypoglycemia Diagnostic Test (Pha) (Accu-Chek) 1 each FS ACHS [facility] Last Admin: 12/27/17 21:59 Dose: 1 each Docusate Sodium (Colace) 100 mg PO BID [facility] Last Admin: 12/27/17 20:32 Dose: 100 mg Fentanyl (Duragesic) 50 mcg TOPICAL Q72H [facility] Last Admin: 12/26/17 12:02 Dose: 50 mcg Fluticasone Propionate (Flonase) 1 spray NS Q6HP PRN PRN Reason: Allergy Symptoms Glucose (Insta-Glucose) 15 gm PO PRN PRN PRN Reason: Hypoglycemia Guaifenesin (Mucinex) 600 mg PO BID [facility] Last Admin: 12/27/17 20:32 Dose: 600 mg Guaifenesin/Codeine Phosphate (Robitussin Ac) 10 ml PO Q4HP PRN PRN Reason: Cough Last Admin: 12/28/17 03:52 Dose: 10 ml Heparin Sodium (Porcine) (Heparin) 5,000 unit SQ Q12 [facility] Last Admin: 12/27/17 20:32 Dose: 5,000 unit Magnesium Sulfate (Magnesium Sulfate) 2 gm in 50 mls @ 50 mls/hr IV UD PRN PRN Reason: MG = or < 1.7 Last Infusion: 12/26/17 09:45 Dose: Infused Acetaminophen (Ofirmev) 1,000 mg in 100 mls @ 200 mls/hr IV Q6HP PRN PRN Reason: PAIN/FEVER > 101 Levofloxacin (Levaquin) 750 mg in 150 mls @ 100 mls/hr IV Q24H [facility] Last Infusion: 12/27/17 13:54 Dose: Infused Insulin Human Lispro (Humalog) 0 unit SQ [facility]; Protocol Last Admin: 12/27/17 21:59 Dose: Not Given Iron Carb/Multivit/Human Resources Professional/Folic Acid (Multivitamin W/Minerals) 1 tab PO DAILY [facility] Last Admin: 12/27/17 08:49 Dose: 1 tab Levothyroxine Sodium (Synthroid) 125 mcg PO QAMAC [facility] Last Admin: 12/27/17 07:30 Dose: 125 mcg Lisinopril (Zestril) 10 mg PO DAILY [facility] Last Admin: 12/27/17 08:49 Dose: 10 mg Loperamide HCl (Imodium) 2 mg PO Q6HP PRN PRN Reason: Diarrhea Methocarbamol (Robaxin) 500 mg PO QIDP PRN PRN Reason: Pain Last Admin: 12/27/17 17:55 Dose: 500 mg Metoprolol Tartrate (Lopressor) 12.5 mg PO BID [facility] Omeprazole (Prilosec) 20 mg PO ACB [facility] Last Admin: 12/27/17 07:30 Dose: 20 mg Ondansetron HCl (Zofran) 4 mg IV Q4-6HP PRN PRN Reason: Nausea And Vomiting Last Admin: 12/26/17 08:39 Dose: 4 mg Paroxetine HCl (Paxil) 40 mg PO DAILY [facility] Last Admin: 12/27/17 08:50 Dose: 40 mg Potassium Chloride (Klor-Con) 40 meq PO DAILYP PRN PRN Reason: K+ < 3.5 [facility] Admin: 12/27/17 07:30 Dose: 40 mg Pregabalin (Lyrica) 50 mg PO TID [facility] Last Admin: 12/27/17 20:32 Dose: 50 mg Fluticasone/Salmeterol (Advair 250-50 Diskus) 1 puff INH BID [facility] Last Admin: 12/27/17 21:58 Dose: Not Given Senna/Docusate Sodium (Senna Plus Tablet) 1 tab PO HS [facility] Last Admin: 12/27/17 20:33 Dose: 1 tab Sitagliptin Phosphate (Januvia) 100 mg PO DAILY [facility] Last Admin: 12/27/17 08:49 Dose: 100 mg Sodium Chloride (Saline Flush) 10 ml IV Q8 [facility] Last Admin: 12/28/17 05:27 Dose: 10 ml Spironolactone (Aldactone) 25 mg PO DAILY [facility] Last Admin: 12/27/17 08:49 Dose: 25 mg Trazodone HCl (Desyrel) 50 mg PO HS [facility] Last Admin: 12/27/17 20:33 Dose: 50 mg Medical - PN: A/P - Time Spent With Patient Total time spent is greater than 50% in coordination of care (as documented) at patient's floor/unit and/or counseling patient: (1) Acute exacerbation of chronic obstructive airways disease Status: Acute Assessment and plan: Assessment 62-year-old female with a history of COPD and active smoker admitted with COPD exacerbation/severe dyspnea. * COPD clinical improvement noted on inhaled bronchodilators/oral steroids * Hypoxic hypercapnic respiratory failure- clinically resolved. Off Noninvasive ventilation. Likely secondary to opioid induced respiratory depression and COPD exacerbation * Chest infiltrates - repeat chest imaging no evidence of infiltrates or pneumonia. DC Levaquin * Elevated liver enzymes along with cirrhosis on recent CT-unclear etiology. Negative acute hepatitis panel. Chronic hepatitis panel pending. Echo pending. Patient is scheduled to follow up with [facility] as outpatient. 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 * DM type II continue prandial insulin/sitagliptin * Atrial fibrillation currently in sinus. Continue low-dose beta chun. Not on anticoagulation * hyperlipidemia on statin * Anxiety disorder continue bupropion * Neuropathy continue Lyrica * Fibromyalgia/chronic pain on fentanyl patch/hydrocodone * Tobacco dependence-start nicotine patch * DNR * DVT prophylaxis on heparin Plan * Transfer to medical floor * Await Echocardiogram * DC antibiotics * Pre-existing medical condition management as above * Aggressive physical therapy * Transfer to [facility] possibly in 24-48 hours * Outpatient GI follow-up Current Visit: Yes Medical - PN: Qual - VTE Deep Vein Thrombosis/Pulmonary Embolism Present on Admission: No
[2017-12-28] MEDS: INSULIN LISPRO 1 UNIT/0.01 ML UNIT SQ SCH ×4 (09:30→20:21)
[2017-12-28] MEDS: DOCUSATE SODIUM 100 MG CAPSULE PO SCH ×2 (09:43→20:20)
[2017-12-28] MEDS: buPROPion 150 MG TAB.XL.24H PO SCH (09:43)
[2017-12-28] MEDS: MULTIVIT,THER IRON,CA,FA & MIN 1 TABLET PO SCH (09:43)
[2017-12-28] MEDS: CETIRIZINE 10 MG TABLET PO SCH (09:43)
[2017-12-28] MEDS: PARoxetine 20 MG TABLET PO SCH (09:43)
[2017-12-28] MEDS: HEPARIN 5,000 UNIT/ML VIAL SQ SCH ×2 (09:43→20:21)
[2017-12-28] MEDS: guaiFENesin 600 MG TAB.SR.12H PO SCH ×2 (09:43→20:19)
[2017-12-28] MEDS: PREGABALIN 25 MG CAPSULE PO SCH ×3 (09:43→20:19)
[2017-12-28] MEDS: METHOCARBAMOL 500 MG TABLET PO PRN ×2 (09:43→16:26)
[2017-12-28] MEDS: LEVOTHYROXINE 25 MCG TABLET PO SCH (09:44)
[2017-12-28] MEDS: predniSONE 20 MG TABLET PO SCH (09:44)
[2017-12-28] MEDS: LISINOPRIL 10 MG TABLET PO SCH (09:44)
[2017-12-28] MEDS: OMEPRAZOLE 20 MG CAPSULE PO SCH (09:45)
[2017-12-28] MEDS: CALCIUM CARBONATE 500 MG TAB.CHEW PO SCH ×3 (09:45→16:26)
[2017-12-28] MEDS: sitaGLIPtin 100 MG TABLET PO SCH (09:45)
[2017-12-28] MEDS: SPIRONOLACTONE 25 MG TABLET PO SCH (09:45)
[2017-12-28] MEDS: FLUTICASONE/SALMETEROL 250/50 INHALER #14 INH SCH ×2 (09:45→20:21)
[2017-12-28] MEDS ORDERED: MAGNESIUM SULFATE 2 GM/50 ML BAG IV PRN (10:11)
[2017-12-28] MEDS ORDERED: DEXTROSE 50% 50 ML VIAL IV PRN (10:11)
[2017-12-28] MEDS ORDERED: ONDANSETRON 4 MG/2 ML VIAL IV PRN (10:11)
[2017-12-28] MEDS ORDERED: POTASSIUM CHLORIDE 20 MEQ PACKET PO PRN (10:11)
[2017-12-28] MEDS ORDERED: BISACODYL 10 MG SUPP.RECT PR PRN (10:11)
[2017-12-28] MEDS ORDERED: FLUTICASONE PROPIONATE SPRAY.NAS NS PRN (10:11)
[2017-12-28] MEDS ORDERED: DEXTROSE 31 GM ORAL.SUSP PO PRN (10:11)
[2017-12-28] MEDS ORDERED: LOPERAMIDE 2 MG CAPSULE PO PRN (10:11)
[2017-12-28] MEDS: METOPROLOL TARTRATE 25 MG TABLET PO SCH (20:19)
[2017-12-28] MEDS ORDERED: SENNOSIDES/DOCUSATE SODIUM 1 TAB TABLET PO SCH (21:00)
[2017-12-28] MEDS ORDERED: traZODone HCL 50 MG TABLET PO SCH (21:00)
[2017-12-29] MEDS: IPRATROPIUM/ALBUTEROL 3 ML AMPUL.NEB NEB SCH ×3 (03:45→13:05)
[2017-12-29] MEDS: METHOCARBAMOL 500 MG TABLET PO PRN ×2 (03:49→10:41)
[2017-12-29] MEDS: guaiFENesin/CODEINE 10 ML UDC PO PRN ×3 (03:49→13:15)
[2017-12-29] MEDS: HYDROcodone/APAP 5/325MG TABLET PO PRN ×2 (03:49→10:41)
[2017-12-29] MEDS: 0.9 % SODIUM CHLORIDE 10 ML SYRINGE IV SCH (05:46)
[2017-12-29 05:50] LABS: Mean Cell Volume 90.1 fL (80.0-100.0); Mean Corpuscular HGB Conc 32.6 g/dL (31.0-36.0); Mean Corpuscular Hemoglobin 29.4 pg (26.0-34.0); Platelet Count 269 K/mcL (140-440); RBC 3.51 M/mcL (4.00-5.20); Red Cell Distribution Width 15.1 % (11.5-14.5)
[2017-12-29 06:16] LABS: ALT/SGPT 141 U/l (0-40); Albumin 2.8 gm/dL (3.2-5.2); Albumin/Globulin Ratio 0.6 (1.0-2.3); Alkaline Phosphatase 139 U/L (39-117); Bilirubin,Direct < 0.2 mg/dL (0.0-0.3); Blood Urea Nitrogen 12 mg/dl (8-23); Gamma Glutamyl Transpeptidase 277 U/L (5-36); Uric Acid 1.9 mg/dL (2.5-8.0)
[2017-12-29 06:43] LABS: Eosinophils % (Manual) 1 % (0-7); Hypochromasia 1+ (NONE SEEN); Lymphocytes % 21 % (15-49); Monocytes % (Manual) 6 % (1-12); Platelet Estimate NORMAL (NORMAL); RBC Morphology ABNORM (NORMAL); Segmented Neutrophils % 72 % (38-78); Stomatocytes 1+ (NONE SEEN); Target Cells RARE (NONE SEEN)
[2017-12-29] MEDS: CALCIUM CARBONATE 500 MG TAB.CHEW PO SCH ×2 (07:04→11:50)
[2017-12-29] MEDS: INSULIN LISPRO 1 UNIT/0.01 ML UNIT SQ SCH ×2 (07:12→11:49)
[2017-12-29] MEDS ORDERED: OMEPRAZOLE 20 MG CAPSULE PO SCH (07:30)
[2017-12-29] MEDS ORDERED: LEVOTHYROXINE 25 MCG TABLET PO SCH (07:30)
[2017-12-29] MEDS: BUDESONIDE 0.5 MG/2 ML AMPUL.NEB NEB SCH (07:36)
[2017-12-29] MEDS ORDERED: predniSONE 20 MG TABLET PO SCH (08:00)
[2017-12-29] MEDS: HEPARIN 5,000 UNIT/ML VIAL SQ SCH (08:29)
[2017-12-29] MEDS: PREGABALIN 25 MG CAPSULE PO SCH (08:30)
[2017-12-29] MEDS: guaiFENesin 600 MG TAB.SR.12H PO SCH (08:30)
[2017-12-29] MEDS: METOPROLOL TARTRATE 25 MG TABLET PO SCH (08:31)
[2017-12-29] MEDS: DOCUSATE SODIUM 100 MG CAPSULE PO SCH (08:33)
[2017-12-29] MEDS: FLUTICASONE/SALMETEROL 250/50 INHALER #14 INH SCH (08:34)
[2017-12-29] MEDS ORDERED: sitaGLIPtin 100 MG TABLET PO SCH (09:00)
[2017-12-29] MEDS ORDERED: LISINOPRIL 10 MG TABLET PO SCH (09:00)
[2017-12-29] MEDS ORDERED: SPIRONOLACTONE 25 MG TABLET PO SCH (09:00)
[2017-12-29] MEDS ORDERED: CETIRIZINE 10 MG TABLET PO SCH (09:00)
[2017-12-29] MEDS ORDERED: buPROPion 150 MG TAB.XL.24H PO SCH (09:00)
[2017-12-29] MEDS ORDERED: PARoxetine 20 MG TABLET PO SCH (09:00)
[2017-12-29] MEDS ORDERED: MULTIVIT,THER IRON,CA,FA & MIN 1 TABLET PO SCH (09:00)
--- NOTE | 2017-12-29 09:56 | Discharge Summary ---
Medical - DS: Prov Patient information: Note initiated : 12/29/17 at 9:53 am Service Date, if different from initiated Date: [] Patient: Sammie Mazariegos 62 y/o F admitted on 12/25/17 for Short of Breath, Cough/COPD Exacerbation. Chief Complaint: [] Date of admission: 12/25/17 14:59 Discharge date: 12/29/17 Primary care physician: Katie Camp Consults: 12/25/17 14:05 Consult to Physician [CONS] Stat Comment: Consulting Provider: To Manley Reason For Exam: Physician to Consult Medical - DS: Meds - Discharge Medications Prescriptions: Metoprolol Tartrate [Lopressor] 12.5 mg PO BID #30 tablet predniSONE [Prednisone] 40 mg PO [facility] #6 tablet Active and Home Medications: Home Medications Amiodarone HCl [Pacerone] 200 mg PO DAILY 11/13/16 [History Confirmed 12/25/17 Last Taken 12/25/17 07:44] Fluticasone/Salmeterol [Advair 250-50 Diskus] 1 puff INH BID 11/13/16 [History Confirmed 12/25/17 Last Taken 12/25/17 09:28] Lisinopril [Zestril] 10 mg PO DAILY 11/13/16 [History Confirmed 12/25/17 Last Taken 12/24/17 19:44] Methocarbamol [Robaxin] 500 mg PO QIDP PRN 11/13/16 [History Confirmed 12/25/17 Last Taken 12/24/17 13:10] PARoxetine HCL [Paxil] 40 mg PO DAILY 11/13/16 [History Confirmed 12/25/17 Last Taken 12/25/17 09:28] sitaGLIPtin [Januvia] 100 mg PO DAILY 11/13/16 [History Confirmed 12/25/17 Last Taken 12/25/17 09:28] traZODone HCL [Trazodone HCl] 50 mg PO HS 11/13/16 [History Confirmed 12/25/17 Last Taken 12/24/17 19:44] Multivitamin [One Daily] 1 each PO DAILY 05/13/17 [History Confirmed 12/25/17 Last Taken 12/25/17 09:28] Ubidecarenone [Co Q-10] 200 mg PO DAILY 05/13/17 [History Confirmed 12/25/17 Last Taken 12/25/17 09:28] Vitamin B Complex [Ultra B-100 Complex] 1 each PO DAILY 05/13/17 [History Confirmed 12/25/17 Last Taken 12/25/17 09:28] Atorvastatin [Lipitor] 20 mg PO HS tablet 06/18/17 [Rx Confirmed 12/25/17 Last Taken 12/24/17 07:44] Benzonatate [Tessalon] 100 mg PO TIDP PRN #30 capsule 06/18/17 [Rx Confirmed Last Taken 12/25/17 09:28] HYDROcodone/APAP 5/325MG [Ambrose 5-325Mg] 2 tab PO Q4HP PRN tablet 06/18/17 [Rx Confirmed 12/25/17 Last Taken 12/25/17 09:28] Pregabalin [Lyrica] 50 mg PO BID #28 cap 06/18/17 [Rx Confirmed 12/25/17 Last Taken 12/25/17 09:28] Vitamin D3 400 unit PO DAILY tablet 06/18/17 [Rx Confirmed 12/25/17 Last Taken 12/25/17 09:28] fentaNYL [Fentanyl] 50 mcg TD Q72H #5 patch.td72 06/18/17 [Rx Confirmed Last Taken 12/23/17 03:55] metFORMIN [Glucophage] 1,000 mg PO BIDCC #90 tablet 06/18/17 [Rx Confirmed 12/25 Last Taken 12/25/17 09:28] Bisacodyl [Dulcolax] 10 mg SC DAILYP PRN 12/25/17 [History Confirmed 12/25/17 Last Taken Unknown] Calcium Carbonate [Tums] 200 mg PO AC 12/25/17 [History Confirmed 12/25/17 Last Taken 12/25/17 09:28] Cetirizine HCl [Zyrtec] 10 mg PO DAILY 12/25/17 [History Confirmed 12/25/17 Last Taken 12/24/17 19:44] Fluticasone Propionate [Flonase] 1 spray NS Q6HP PRN 12/25/17 [History Confirmed 12/25/17 Last Taken 12/23/17 08:47] Levothyroxine [Synthroid] 125 mcg PO QAMAC 12/25/17 [History Confirmed 12/25/17 Last Taken 12/25/17 09:28] Loperamide HCl [Imodium A-D] 2 mg PO Q6HP PRN 12/25/17 [History Confirmed Last Taken 12/23/17 20:47] Omeprazole 20 mg PO DAILY 12/25/17 [History Confirmed 12/25/17 Last Taken 09:28] Spironolactone [Aldactone] 25 mg PO DAILY 12/25/17 [History Confirmed 12/25/17 Last Taken 12/25/17 09:28] buPROPion HCL [Wellbutrin Sr] 150 mg PO DAILY 12/25/17 [History Confirmed Last Taken 11/29/17 07:49] diphenhydrAMINE [Benadryl] 25 mg PO Q6HP PRN 12/25/17 [History Confirmed Last Taken 12/24/17 08:56] guaiFENesin [Mucinex] 600 mg PO BID 12/25/17 [History Confirmed 12/25/17 Last Taken 11/25/17 08:48] Medical - DS: Hosp Hospital course: Discharge diagnoses * COPD exacerbation- clinical improvement noted on inhaled bronchodilators/oral steroids. Discharging home on oral steroids for additional 3 days * Hypoxic hypercapnic respiratory failure- clinically resolved. Off Noninvasive ventilation. Likely secondary to opioid induced respiratory depression and COPD exacerbation * Chest infiltrates - repeat chest imaging no evidence of infiltrates or pneumonia. Antibiotics discontinued after 3 days Levaquin * Elevated liver enzymes along with cirrhosis on recent CT-unclear etiology. Negative acute hepatitis panel. Chronic hepatitis panel pending. Echo pending. 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 Patient is scheduled to follow up with JONES Ramos as outpatient. * DM type II continue prandial insulin/sitagliptin * Atrial fibrillation currently in sinus. Continue low-dose beta chun. Not on anticoagulation * hyperlipidemia on statin * Anxiety disorder continue bupropion * Neuropathy continue Lyrica * Fibromyalgia/chronic pain on fentanyl patch/hydrocodone * Tobacco dependence-start nicotine patch Brief hospital course Ms. Mazariegos is a 62 year old F from [facility] with a known history of COPD and active smoker presented to the ER with worsening shortness of breath that has progressed over the last couple of days. Symptoms that progressed with onset of cough for the last 24 hours. However there is no associated fever or chest pain. Patient has associated increasing somnolence and fatigue limiting her functionality. Her symptoms were not relieved by regular use of her Advair. She was subsequently brought in to [facility] ER. Initial workup was significant for pH 7.3/PCO2 64 along with chest infiltrates. Patient was started on antibiotic coverage and noninvasive ventilation light of hypercapnic encephalopathy and respiratory failure. Hospitalist service was consulted. At the time of evaluation patient is on BiPAP. She was able to answer a few questions and was able to provide limited history due to BiPAP mask. No family members were present 12/26- patient doing a lot better. No overnight events. No concerns per staff. Tolerated BiPAP overnight. White count down from 14-10,000. History of cirrhosis with elevated LFTs. Blood gas improved 7.34/59. Improving hypercapnic acidosis. Continue noninvasive ventilation. De-escalate antibiotics. 12/27-patient off noninvasive ventilation and currently on 5 L oxygen . Elevated transaminases with workup ongoing including echocardiogram/hepatitis panel. Discontinue statin and amiodarone. Use beta chun for rate control. CT chest no evidence of malignancy but extensive bilateral pneumonia. Speech therapy consulted. Continue diet per speech therapy recommendations and continue aspiration precautions. Transfer to medical floor in 24 hours 12/28- patient doing a lot better.. Patient in good spirits This morning. Complains of generalized pain inadequately controlled on existing fentanyl and hydrocodone. However risk status improved. Currently on 6 L oxygen sats 95. Off amiodarone. In sinus rhythm. Start metoprolol 12.5 twice a day. Persistent elevated LFTs. Hepatitis panel negative. Echocardiogram pending results. X-ray chest no acute process. No overnight events including fever chills or concerns per nursing staff 12/29-patient feels markedly better. No overnight events. No concerns per medical staff. Off noninvasive ventilation. Ambulating and undergoing physical therapy. Tolerating diet. Bowel movement this morning. In good spirits. Transferring to SNF today with advice and instructions as below Discharge diagnosis: . - Time Spent with Patient Total time spent providing and/or coordinating discharge services: Greater than 30 minutes Medical - DS: Exam - Constitutional Vitals: Vital Signs Temp Pulse Pulse Resp BP BP Pulse Ox 12/29/17 08:00 97 12/29/17 07:44 76 16 12/29/17 07:40 97.7 F 76 17 124/70 97 12/29/17 07:36 93 12/29/17 03:53 96.8 F L 71 18 105/62 91 12/29/17 00:00 97.6 F 82 16 109/68 94 12/28/17 20:00 97.9 F 76 18 113/51 92 12/28/17 19:20 74 18 12/28/17 15:19 98.1 F 68 20 127/70 95 12/28/17 11:35 97.5 F 79 16 115/71 93 12/28/17 11:18 72 16 Intake and Output 12/28/17 12/29/17 12/29/17 21:59 05:59 13:59 Intake Total 120 / 120 200 / 200 180 / 180 Output Total 650 / 650 1601 / 1601 350 / 350 Balance -530 / -530 -1401 / -1401 -170 / -170 Intake: Oral 120 / 120 200 / 200 180 / 180 Output: Void Amount 650 / 650 1600 / 1600 350 / 350 # of times incontinent of urine Other: Meal Dinner sherley crackers & yogurt Breakfast Percent of Meal Consumed 50% 100% 100% Feeding Ability Independent Independent Independent Stool Size Moderate Large Stool Color Brown Brown Stool Consistency Soft Normal for Patient Formed Formed # Voids 1 1 # Bowel Movements 1 1 Weight 200 lb Medical - DS: Data Labs on day of discharge: Labs from last 24 hours 12/29/17 12/29/17 04:35 04:35 WBC 11.3 H RBC 3.51 L Hgb 10.3 L Hct 31.6 L MCV 90.1 MCH 29.4 MCHC 32.6 RDW 15.1 H Plt Count 269 MPV 8.6 Total Counted 100 Seg Neutrophils % 72 Band Neutrophils % Not Reportable Lymphocytes % 21 Monocytes % (Manual) 6 Eosinophils % (Manual) 1 Platelet Estimate Normal RBC Morphology Abnorm A Hypochromasia 1+ A Target Cells Rare A Stomatocytes 1+ A Sodium 136 Potassium 4.4 Chloride 99 Carbon Dioxide 32 H Anion Gap 5.0 L BUN 12 Creatinine 0.6 GFR Calculation 96 Glucose 159 H Uric Acid 1.9 L Calcium 9.0 Phosphorus 2.2 L Magnesium 1.7 Total Bilirubin 0.3 Direct Bilirubin < 0.2 GGT 277 H AST 130 H ALT 141 H Alkaline Phosphatase 139 H Lactate Dehydrogenase 145 Total Protein 7.3 Albumin 2.8 L Globulin 4.5 H Albumin/Globulin Ratio 0.6 L Triglycerides 94 Preliminary micro results at discharge 12/25/17 12:04 Blood Culture - Preliminary Blood 12/25/17 12:11 Blood Culture - Preliminary Blood Medical - DS: A/P - Patient/Caregiver Discharge Instructions Activity: as per physical therapy, increase activity as tolerated Diet: Low Sodium (2gm) Additional Instructions: Follow-up PCP in 5 days Follow-up with GI Shweta Ramos as scheduled for evaluation of elevated liver enzymes Amiodarone and statin has been discontinued until follow-up with GI.-Possible elevation in LFTs secondary to amiodarone toxicity and statin use. I recommend SNF physician to check CBC CMP UA as a posthospital follow-up in 1 week. oxygen @ 2-3 L sats around 88%. Patient would benefit from anticoagulation based on chads score over 2. Would recommend primary care physician to discuss anticoagulation. Continue oral prednisone medication 3 days Recommend follow-up with pulmonology as outpatient Please schedule pulmonary function test as outpatient in 3 weeks Continue aggressive bowel regimen to prevent constipation Continue fall precautions Continue aggressive PT OT evaluation and treatment at SNF. ST eval and treatment if indicated All meals on chair sitting upright at 90 degrees to prevent aspiration Return to ER if worsening fever chills shortness of breath, diarrhea, bleeding Refrain from smoking and alcohol Continue diet and activity as advised Discussed importance of medication adherence Please review medication list with patient prior to discharge Please schedule follow-up with PCP/Providers prior to discharge and provide printouts Portions of this chart may have been created with [employer] voice recognition software. Occasional wrong-word or ?sound-like? substitutions may have occurred due to the inherent limitations of voice recognition software. Please read the chart carefully and recognize, using context, where the substitutions have occurred. CC- PCP Prescriptions: Metoprolol Tartrate [Lopressor] 12.5 mg PO BID #30 tablet predniSONE [Prednisone] 40 mg PO [facility] #6 tablet - Problem Maintenance (1) Acute exacerbation of chronic obstructive airways disease Status: Acute - Follow up Plan Follow up with: Katie Camp ARNP [Primary Care Provider] - Disposition: [facility] Prognosis: Fair Rehab Potential: Fair I certify that the patient requires SNF services: Yes Overall status at discharge: patient is progressing back to baseline Medical - DS: Qual - VTE Deep Vein Thrombosis/Pulmonary Embolism Present on Admission: No
[2017-12-29] MEDS ORDERED: fentaNYL 50 MCG PATCH TOPICAL SCH (10:00)
[2017-12-31 10:15] LABS: Hepatitis A Antibody Total REACTIVE (NON-REACTIVE); Hepatitis B SAB Quant <5 mIU/mL (> OR = 10); Hepatitis B Surface Antigen NON-REACTIVE (NON-REACTIVE); Hepatitis C Virus Antibody NON-REACTIVE (NON-REACTIVE)
== END 2017-12-29 14:17 | DRG 190 ==
LOC: ED 11:39 → ICU 14:59 → MEDSUR 12-28 14:30
PROVIDERS: ADMIT Internal Medicine; ATTEND Internal Medicine